=== PATIENT | male | born 1955 | race Caucasian/White ===

== ENCOUNTER 2019-04-06 03:03 | Emergency (ER) | payer BC ==
[2019-04-06] MEDS ORDERED: EPINEPHrine 1 MG/10 ML SYR IV ONE (03:04)
[2019-04-06] MEDS ORDERED: AMIODARONE HCL 150 MG/3 ML INJ IV ONE (03:04)
--- OUTSIDE RECORDS SUMMARY | 2019-04-06 03:06 | XMS REPORT | Clinical Summary ---
:1955 Author Organization [facility] Address [address] [place] [address] Care Team Providers Name Role Phone Benitez Gentile Primary Care Provider Allergies Active Allergy Reactions Severity Noted Date Comments Adhesive Other (See Comments) 03/21/2016 Redness with bandaids Adhesive Bandage 03/05/2017 Redness Medications Medication Sig Dispensed Refills Start Date End Date Status carvedilol (COREG) Take 25 mg by mouth 0 Active 25 MG tablet 2 (two) times daily with breakfast and dinner. eplerenone (INSPRA) Take 25 mg by mouth 0 Active 25 MG tablet 2 (two) times daily. mupirocin Apply topically 0 Active (BACTROBAN) 2 % daily To Right Foot ointment Wound with Daily Bandage Change and L foot.. rosuvastatin Take 20 mg by mouth 0 Active (CRESTOR) 20 MG daily. tablet insulin glargine Inject 50 Units 0 Active (TOUJEO SOLOSTAR) subcutaneously 300 unit/mL (1.5 mL) nightly . InPn syringe amiodarone 200 mg daily. 0 01/18/2017 Active (PACERONE) 200 MG tablet furosemide (LASIX) Take 2 tablets (40 20 tablet 0 02/22/2017 Active 20 MG tablet mg total) by mouth daily. nitroglycerin Place 0.4 mg under 0 Active (NITROSTAT) 0.4 MG the tongue every 5 SL tablet (five) minutes as needed for Chest pain Put 1 pill under tongue every 5min as needed for chest pain.No more than 3 doses in 15min.Call 911 if pain is unrelieved 5min after 1st dose . INSULIN LISPRO Inject 12 Units 0 Active (HUMALOG PEN SUBQ) subcutaneously 3 (three) times daily before meals . 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: CKD induced Hyperparathyroidism, secondary renal 07/26/2016 URI (upper respiratory infection) 07/26/2016 A-fib 07/23/2016 CAD (coronary artery disease) 01/10/2016 Arterial disease 01/10/2016 Diabetes mellitus 01/06/2016 S/P CABG x 4 01/06/2016 Hypertension 01/06/2016 Hyperlipidemia LDL goal <100 01/06/2016 PVD (peripheral vascular disease) 01/04/2016 Gangrene of toe 01/04/2016 Immunizations Name Dates Previously Given Next Due Influenza Three-TIV PF 5+ YRS 01/06/2016 Social History Tobacco Use Types Packs/Day Years Used Date Former Smoker Quit: 10/23/1991 Smokeless Tobacco: Never Used Alcohol Use Drinks/Week oz/Week Comments No Sex Assigned at Date Recorded Not on file Job Start Date Occupation Industry Not on file Not on file Not on file Travel History Travel Start Travel End No recent travel history available. Last Filed Vital Signs Not on file Plan of Treatment Not on file Implants Implanted Type Area Installer Interior Assemblies Device Shelf Model / Identifier Expiration Serial / Date Lot Mynxgrip Vascular Closure Device Cardiovascular ACCESS CLOSURE 2018 M4 [id number] / Implanted: Qty: 1 on 03/05/2017 by Vince Goodwin MD / [id number] Mynxgrip Vascular Closure Device Cardiovascular N/A: Groin ACCESS CLOSURE 05/10/2019 [id number] / Implanted: Qty: 1 on 07/25/2017 by Vince Goodwin MD / [id number] Promus Premier Stents-Coronary Left: [place] 02/24/2017 [id number] / Implanted: Qty: 1 on 07/24/2016 by Juan Plummer MD Coronary SCIENTIFIC / [id number] Promus Premier Stents-Coronary Right: [place] 07/14/2017 [id number] / Implanted: Qty: 1 on 07/24/2016 by Juan Plummer MD Coronary SCIENTIFIC / [id number] Tissue Matrix Grft 4x4 [id number] - [id number] Tissue Right: KINETIC 09/10/2017 [id number] / Implanted: Qty: 1 on 03/21/2016 by Moiz Brenner, DPM Graft/Substitute Foot CONCEPTS:[facility] / [place] [id number] Grft Keenan Mrtrstm 200mg [id number] - [id number] Tissue Right: [employer] 12/11 [id number] / Implanted: Qty: 1 on 03/21/2016 by Moiz Brenner, DPM Graft/Substitute Foot [id number] / [id number] Grft Hum Tiss Spnl 3x2cm Ns-1230 - [id number] Tissue Right: NUTECH MED NS-[id number] / Implanted: Qty: 1 on 03/21/2016 by Moiz Brenner, DPM Graft/Substitute Foot / Epifix Injectable 160mg Ei-5200 - Sn/A Tissue Right: [employer] 2020 [id number]-[id number] / Implanted: Qty: 1 on 03/14/2017 by Moiz Brenner, DPM Graft/Substitute Foot INC N/A / N/A Grft Keenan Mrtrstm 500 Mg Nb1146 - [id number] Tissue Left: Foot [employer] [id number] / Implanted: Qty: 1 on 07/31/2017 by Moiz Brenner, DPM Graft/Substitute [id number] / [id number] Grft Decell Dermis 4x4cm [id number] - [id number] Tissue Left: Foot LIFENET: LIFENE 04/24/2020 [id number] / Implanted: Qty: 1 on 07/31/2017 by Moiz Brenner, DPM Graft/Substitute T TRANSPLANT [id number] / SRV Epifix Injectable 160mg Ei-5200 - [id number] Tissue Left: Foot [employer] 05/11/2022 EI-5200 / Implanted: Qty: 1 on 07/31/2017 by Moiz Brenner, DPM Graft/Substitute INC / [id number] Grft Decell Dermis 4x4cm [id number] - [id number] Tissue Left: Foot LIFENET: LIFENE 01/09/2020 [id number] / Implanted: Qty: 1 on 09/12/2017 by Moiz Brenner DPM Graft/Substitute T TRANSPLANT / SRV Graft Primatrix 6x6 [id number] - [id number] Tissue Left: Foot TEI 2020 [id number] / Implanted: Qty: 1 on 12/12/2017 by Moiz Brenner DPM Graft/Substitute [employer] / [id number] Epifix Injectable 160mg Ei-5200 - [id number] Tissue Left: Foot [employer] 08/11/2022 EI-5200 / Implanted: Qty: 1 on 12/12/2017 by Moiz Brenner DPM Graft/Substitute INC / [id number] Grft Keenan Mrtrstm 200mg [id number] - [id number] Tissue Left: Foot [employer] [id number] / Implanted: Qty: 1 on 12/12/2017 by Moiz Brenner DPM Graft/Substitute [id number] / [id number] Cellerate Rx Activated Collagen Left: Foot 07/10/2020 [id number] / Implanted: Qty: 2 on 10/24/2017 by Vince Goodwin MD N/A / [id number] Results Not on fileafter 04/05/2018 Insurance Payer Benefit Plan / Subscriber ID Type Phone Address Group BLUE CROSS/BLUE BCBS HMO xxxxxxxxxxxx HMO/POS [phone] [address] [employer] [address] Advance Directives For more information, please contact:[place] [address] [place] [place], [place] [phone] Code Status Date Activated Date Inactivated Comments Full Code 03/05/2017 12:59 PM 03/05/2017 11:24 PM This code status was determined by: Patient Full Code 02/22/2017 8:17 AM 02/22/2017 3:56 PM This code status was determined by: Patient Full Code 01/14/2017 8:41 PM 01/18/2017 10:10 PM This code status was determined by: Patient Full Code 07/24/2016 10:45 AM 07/26/2016 2:16 PM This code status was determined by: Patient Full Code 07/23/2016 11:49 AM 07/23/2016 11:55 AM This code status was determined by: Patient
--- OUTSIDE RECORDS SUMMARY | 2019-04-06 03:09 | XMS REPORT ---
:1955 Author Organization [facility] Address [address] [place] [address] Care Team Providers Name Role Phone ELANA GREENFIELD Unavailable Unavailable GIANNI WIN Unavailable Unavailable HAO, MACIEL Unavailable Unavailable DANIELA MCNEIL Unavailable Unavailable Problems This patient has no known problems. Allergies, Adverse Reactions, Alerts This patient has no known allergies or adverse reactions. Medications This patient has no known medications. Results Test Description Test Time Test Comments Text Results Atomic Results Result Comments ANAEROBIC CULTURE 2017-12-20 12:59:00 Test Item Value Reference Range Comments CULTURE (BEAKER) (test yrjc=9271) No anaerobes isolated SURGICALLY OBTAINED CULTURE + GRAM [id number] 14:40:00 Test Item Value Reference Range Comments CULTURE (BEAKER) (test 2+ Diphtheroidof a second bilo=8542) type GRAM STAIN RESULT No WBCs (BEAKER) (test ndgb=8268) GRAM STAIN RESULT No organisms seen (BEAKER) (test rdyp=846308) POCT-GLUCOSE [id number] 10:19:00 Test Item Value Reference Range Comments POC-GLUCOSE METER (BEAKER) 213 mg/dL 70-[address] [facility] [address] [facility] (test aray=7758) [place] [id number] POCT-GLUCOSE [id number] 06:45:00 Test Item Value Reference Range Comments POC-GLUCOSE METER (BEAKER) 203 mg/dL 70-[address] [facility] [address] [facility] (test xlmi=9300) [place] [id number] BASIC METABOLIC [id number] 13:55:00 Test Item Value Reference Range Comments SODIUM (BEAKER) (test 133 meq/L 136-145 jynf=163) POTASSIUM (BEAKER) (test 4.0 meq/L 3.5-5.1 jveo=045) CHLORIDE (BEAKER) (test 93 meq/L 98-107 kkax=648) CO2 (BEAKER) (test 29 meq/L 22-29 htxh=534) BLOOD UREA NITROGEN 33 mg/dL 7-21 (BEAKER) (test idfq=824) CREATININE (BEAKER) (test 2.32 mg/dL 0.57-1.25 mxeu=806) GLUCOSE RANDOM (BEAKER) 378 mg/dL 70-105 (test vcxf=744) CALCIUM (BEAKER) (test 9.7 mg/dL 8.4-10.2 btap=436) EGFR (BEAKER) (test 29 mL/min/1.73 sq m ESTIMATED GFR IS NOT ayaj=6177) ACCURATE CREATININE CLEARANCE IN PREDICTING GLOMERULAR FILTRATION RATE. ESTIMATED GFR IS NOT APPLICABLE FOR DIALYSIS PATIENTS. [id number] 12:55:00 Test Item Value Reference Range Comments HEMOGLOBIN (BEAKER) (test ufld=502) 11.8 GM/DL 13.7-17.5 POCT-GLUCOSE [id number] 13:37:00 Test Item Value Reference Range Comments POC-GLUCOSE METER (BEAKER) 242 mg/dL 70-[address] [facility] [address] [place] [address] (test xdii=3119) [facility] [address] [id number] 16:00:00 Test Item Value Reference Range Comments SODIUM (BEAKER) (test hked=394) 134 meq/L 136-145 POTASSIUM (BEAKER) (test bqgt=866) 3.5 meq/L 3.5-5.1 CHLORIDE (BEAKER) (test prln=434) 97 meq/L 98-107 CO2 (BEAKER) (test ivja=295) 25 meq/L 22-29 [id number] 16:00:00 Test Item Value Reference Range Comments GLUCOSE RANDOM (BEAKER) (test bxec=855) 230 mg/dL 70-105 BUN AND [id number] 16:00:00 Test Item Value Reference Range Comments BLOOD UREA NITROGEN 19 mg/dL 7-21 (BEAKER) (test qhtn=268) CREATININE (BEAKER) (test 1.79 mg/dL 0.57-1.25 pccc=039) EGFR (BEAKER) (test 39 mL/min/1.73 sq m ESTIMATED GFR IS NOT hcdp=8593) ACCURATE CREATININE CLEARANCE IN PREDICTING GLOMERULAR FILTRATION RATE. ESTIMATED GFR IS NOT APPLICABLE FOR DIALYSIS PATIENTS. [id number] 15:23:00 Test Item Value Reference Range Comments HEMOGLOBIN (BEAKER) (test nvoe=229) 12.0 GM/DL 13.7-17.5 TISSUE [id number] 10:30:00Surgical Pathology Report Case: [id number] Authorizing Provider: Leana Greenfield DPM Collected: 09/12/2017 0959 Ordering Location: [facility] Received: 09/12/2017 1218 SERVICES Pathologist: Yonny Crews MD Specimen: Wound, REVATILIZE WOUND TISSUE ON LEFT FOOT SKIN AND SUBCUTANEOUS TISSUE, LEFT FOOT, DEBRIDEMENT OF ULCER: - ULCER, NECROSIS AND ABSCESS - NEGATIVE FOR MALIGNANCY Signing Pathologist Direct Phone Line: [phone] left footRevitalized wound tissue on left footReceived in formalin labeled "wound", description "revitalized wound tissue of left foot" is a 3.3 x 2.5 x 0.3 cm aggregate of franklin-white to yellow-green necrotic soft tissue. The specimen is entirely submitted in cassette A1. DB/plPerformed.ANAEROBIC [id number] 03:46:00 Test Item Value Reference Range Comments CULTURE (BEAKER) (test ajre=7800) No anaerobes isolated SURGICALLY OBTAINED CULTURE + GRAM [id number] 10:41:00 Test Item Value Reference Range Comments CULTURE (BEAKER) (test ytls=7714) Amikacin (test code=1) Aztreonam (test code=32) Cefepime (test code=51) Ceftazidime (test code=27) Ciprofloxacin (test code=7) Doripenem (test sjja=846) Gentamicin (test code=18) Imipenem (test code=19) Levofloxacin (test code=22) Meropenem (test code=34) Piperacillin (test code=24) Piperacillin + Tazobactam (test code=29) Tobramycin (test code=25) CULTURE (BEAKER) (test PSEUDOMONAS AERUGINOSA 3+ Pseudomonas fmuk=4553) aeruginosa Amikacin (test code=1) Aztreonam (test code=32) Cefepime (test code=51) Ceftazidime (test code=27) Ciprofloxacin (test code=7) Doripenem (test keob=721) Gentamicin (test code=18) Imipenem (test code=19) Levofloxacin (test code=22) Meropenem (test code=34) Piperacillin (test code=24) Piperacillin + Tazobactam (test code=29) Tobramycin (test code=25) CULTURE (BEAKER) (test 2+ Pseudomonas rbmw=4846) aeruginosaof a second type GRAM STAIN RESULT <1+ WBCs (BEAKER) (test wvja=6510) GRAM STAIN RESULT No organisms seen (BEAKER) (test tvkf=486834) POCT-GLUCOSE [id number] 10:10:00 Test Item Value Reference Range Comments POC-GLUCOSE METER (BEAKER) 242 mg/dL 70-110 TESTED AT [address] (test hxen=3247) [facility] [address] POCT-GLUCOSE [id number] 07:19:00 Test Item Value Reference Range Comments POC-GLUCOSE METER (BEAKER) 323 mg/dL 70-110 Notified DARIN VELÁSQUEZ/TESTED AT [facility] (test jmbw=4604) [facility] [address] BUN AND [id number] 15:16:00 Test Item Value Reference Range Comments BLOOD UREA NITROGEN 31 mg/dL 7-21 (BEAKER) (test umwk=088) CREATININE (BEAKER) (test 2.27 mg/dL 0.57-1.25 isvx=955) EGFR (BEAKER) (test 29 mL/min/1.73 sq m ESTIMATED GFR IS NOT pdkg=0776) ACCURATE CREATININE CLEARANCE IN PREDICTING GLOMERULAR FILTRATION RATE. ESTIMATED GFR IS NOT APPLICABLE FOR DIALYSIS PATIENTS. [id number] 15:15:00 Test Item Value Reference Range Comments SODIUM (BEAKER) (test hsjq=714) 139 meq/L 136-145 POTASSIUM (BEAKER) (test arry=076) 4.1 meq/L 3.5-5.1 CHLORIDE (BEAKER) (test kebn=039) 103 meq/L 98-107 CO2 (BEAKER) (test ybmn=038) 25 meq/L 22-29 [id number] 15:15:00 Test Item Value Reference Range Comments GLUCOSE RANDOM (BEAKER) (test pluf=573) 255 mg/dL 70-105 [id number] 14:50:00 Test Item Value Reference Range Comments HEMOGLOBIN (BEAKER) (test ngzb=496) 8.9 GM/DL 13.7-17.5 TISSUE [id number] 16:24:00Surgical Pathology Report Case: [id number] Authorizing Provider: Leana Greenfield DPM Collected: 07/29/2017 1915 Ordering Location: [facility] Received: 07/30/2017 0838 SERVICES Pathologist: Farhad Grissom MD Specimen: Amputation Site, Amputation of 4th toe , left foot BONE, LEFT FOOT FOURTH TOE, AMPUTATION: - GANGRENOUS NECROSIS INVOLVING THE SKIN AND SOFT TISSUE MARGIN - CHRONIC OSTEOMYELITIS INVOLVING THE BONE MARGIN Signing Pathologist Direct Phone Line: [phone] signed by Farhad Grissom MD on 08/06/2017 at 4:24 [id number] foot infection, gangrene 4th toe left foot amputationThe specimen is received in a fluidless container labeled with the patient's information and labeled "amputation of 4th toe left foot" and consists of an amputated toe measuring 7 x 1.5 x 1.5 cm. The majority of the skin is involved with gangrene and has a light-purple discoloration. The area measures 4 x 1.5 cm leaving approximately 0.8 cm of grossly viable skin. No other abnormalities are seen.Section code: A1, skin margin en face; A2, bone margin en face submitted for decalcification; A3, cross section through toe consisting of bone and area of gangrene submitted for decalcification. CG/ewThe skin margin shows gangrenous necrosis in the deep dermis and thebone margin shows chronic osteomyelitis .ANAEROBIC [id number] 16:56:00 Test Item Value Reference Range Comments CULTURE (BEAKER) (test zguj=3606) No anaerobes isolated SURGICALLY OBTAINED CULTURE + GRAM [id number] 08:00:00 Test Item Value Reference Range Comments CULTURE (BEAKER) <1+ Nellie parapsilosis (test vzpf=0619) GRAM STAIN RESULT No White blood cells (BEAKER) (test seen chgr=6159) GRAM STAIN RESULT No organisms seen (BEAKER) (test wygr=536116) POCT-GLUCOSE [id number] 13:11:00 Test Item Value Reference Range Comments POC-GLUCOSE METER (BEAKER) 204 mg/dL 70-[address] [facility] [address] [facility] (test kvgy=5551) [facility] [address] POCT-GLUCOSE [id number] 07:48:00 Test Item Value Reference Range Comments POC-GLUCOSE METER (BEAKER) 124 mg/dL 70-110 TESTED AT [place] [id number] [facility] (test ugza=2368) [facility] [address] CBC W/PLT COUNT & AUTO [id number] 04:33:00 Test Item Value Reference Range Comments WHITE BLOOD CELL COUNT (BEAKER) (test yyzz=064) 8.2 K/ L 3.5-10.5 RED BLOOD CELL COUNT (BEAKER) (test hqmr=337) 3.66 M/ L 4.63-6.08 HEMOGLOBIN (BEAKER) (test ljvp=423) 8.6 GM/DL 13.7-17.5 HEMATOCRIT (BEAKER) (test cebu=200) 28.7 % 40.1-51.0 MEAN CORPUSCULAR VOLUME (BEAKER) (test wpkk=801) 78.4 fL 79.0-92.2 MEAN CORPUSCULAR HEMOGLOBIN (BEAKER) (test 23.5 pg 25.7-32.2 pfvf=268) MEAN CORPUSCULAR HEMOGLOBIN CONC (BEAKER) (test 30.0 GM/DL 32.3-36.5 srdh=517) RED CELL DISTRIBUTION WIDTH (BEAKER) (test 17.1 % 11.6-14.4 fxue=502) PLATELET COUNT (BEAKER) (test pkrg=999) 323 K/CU MM 150-450 MEAN PLATELET VOLUME (BEAKER) (test tsbj=782) 8.3 fL 9.4-12.4 NUCLEATED RED BLOOD CELLS (BEAKER) (test 0 /100 WBC 0-0 qgvo=601) NEUTROPHILS RELATIVE PERCENT (BEAKER) (test 74 % tdsc=224) LYMPHOCYTES RELATIVE PERCENT (BEAKER) (test 12 % rygx=482) MONOCYTES RELATIVE PERCENT (BEAKER) (test 8 % msdf=479) EOSINOPHILS RELATIVE PERCENT (BEAKER) (test 4 % gcla=901) BASOPHILS RELATIVE PERCENT (BEAKER) (test 1 % nivw=669) NEUTROPHILS ABSOLUTE COUNT (BEAKER) (test 6.11 K/ L 1.78-5.38 fpgh=618) LYMPHOCYTES ABSOLUTE COUNT (BEAKER) (test 0.97 K/ L 1.32-3.57 nbwk=139) MONOCYTES ABSOLUTE COUNT (BEAKER) (test 0.66 K/ L 0.30-0.82 vjlz=100) EOSINOPHILS ABSOLUTE COUNT (BEAKER) (test 0.34 K/ L 0.04-0.54 foqg=628) BASOPHILS ABSOLUTE COUNT (BEAKER) (test 0.07 K/ L 0.01-0.08 zwmo=807) IMMATURE GRANULOCYTES-RELATIVE PERCENT (BEAKER) 1 % 0-1 (test zpqp=8677) ANAEROBIC [id number] 01:01:00 Test Item Value Reference Range Comments CULTURE (BEAKER) (test luvq=2957) No anaerobes isolated POCT-GLUCOSE [id number] 21:57:00 Test Item Value Reference Range Comments POC-GLUCOSE METER (BEAKER) 299 mg/dL 70-110 TESTED AT [address] (test ojxi=4493) [place] [address] RAD, CHEST, 1 VIEW, NON [id number] 21:12:00Reason for exam:->check picc placement Should this be performed at the bedside?->YesFINAL REPORT RAD, CHEST, 1 VIEW, NON DEPT INDICATION: check picc placement COMPARISON: Chest x-rays dating back to 01/14/2017 TECHNIQUE: Single frontal view of the chest. IMPRESSION:Right-sided PICC line terminates near the atriocaval junction.Cardiomediastinal silhouette within normal limits.No overt consolidative or congestive change.No acute osseous abnormality. Signed: Gopal Pillai MDReport Verified Date/Time: 08/01/2017 21:12:56 Reading Location: [facility] [id number] Ortho Consult Reading Room POCT-GLUCOSE [id number] 16:56:00 Test Item Value Reference Range Comments POC-GLUCOSE METER (BEAKER) 192 mg/dL 70-110 TESTED AT [address] (test tbrv=3268) [facility] [address] POCT-GLUCOSE [id number] 12:56:00 Test Item Value Reference Range Comments POC-GLUCOSE METER (BEAKER) 73 mg/dL 70-[address] [facility] [address] (test fnxn=5797) [facility] [address] COMPREHENSIVE METABOLIC [id number] 12:40:00 Test Item Value Reference Range Comments TOTAL PROTEIN (BEAKER) 7.1 gm/dL 6.0-8.3 (test nvuu=644) ALBUMIN (BEAKER) (test 3.4 g/dL 3.5-5.0 bbdm=4379) ALKALINE PHOSPHATASE 111 U/L 40-150 (BEAKER) (test yeav=784) BILIRUBIN TOTAL (BEAKER) 0.7 mg/dL 0.2-1.2 (test xiqo=709) SODIUM (BEAKER) (test 142 meq/L 136-145 gtnf=683) POTASSIUM (BEAKER) (test 3.8 meq/L 3.5-5.1 qbew=278) CHLORIDE (BEAKER) (test 104 meq/L 98-107 zwdn=478) CO2 (BEAKER) (test 31 meq/L 22-29 wqqv=518) BLOOD UREA NITROGEN 19 mg/dL 7-21 (BEAKER) (test bsdl=162) CREATININE (BEAKER) (test 2.12 mg/dL 0.57-1.25 lixs=808) GLUCOSE RANDOM (BEAKER) 77 mg/dL 70-105 (test osmr=624) CALCIUM (BEAKER) (test 9.3 mg/dL 8.4-10.2 izjh=492) AST (SGOT) (BEAKER) (test 14 U/L 5-34 xted=198) ALT (SGPT) (BEAKER) (test 12 U/L 6-55 azfu=445) EGFR (BEAKER) (test 32 mL/min/1.73 sq m ESTIMATED GFR IS NOT agef=6416) ACCURATE CREATININE CLEARANCE IN PREDICTING GLOMERULAR FILTRATION RATE. ESTIMATED GFR IS NOT APPLICABLE FOR DIALYSIS PATIENTS. [id number] 12:33:00 Test Item Value Reference Range Comments MAGNESIUM (BEAKER) (test mams=491) 2.1 mg/dL 1.6-2.6 TISSUE [id number] 10:05:00Surgical Pathology Report Case: [id number] Authorizing Provider: Leana Greenfield DPM Collected: 07/24/2017 1535 Ordering Location: [facility] Received: 07/25/2017 0832 SERVICES Pathologist: Farhad Grissom MD Specimen: Toe, Right, 5th BONE AND SOFT TISSUE, RIGHT FIFTH TOE, RAY AMPUTATION: - NONVIABLE SKIN RESECTION MARGIN - NONVIABLE BONE RESECTION MARGIN - ULCERATION WITH GANGRENOUS NECROSIS AND ACUTE OSTEOMYELITIS Signing Pathologist Direct Phone Line: [phone] at 10:05 [id number] wet gangrene of foot Right 5th toeThe specimen is received in a formalin-filled container and labeled with the patient's information and labeled "right 5th toe" and consists of an amputated toe measuring 4.5 x 1.5 x 1 cm. Grossly, the entire skin is involved with gangrene. There is no distinctly viable skin present. The area of gangrene measures approximately 3.8 cm in greatest dimension. Section code: A1, skin margin en face; A2, cross section of bone margin en face, submitted for decalcification; A3, cross section of gangrene and underlying bone, submitted for decalcification. CG/pl The soft tissue sections demonstrate marked acute and chronic inflammation with necrosis and overlying ulceration of the epidermis. The bone shows marrow necrosis with fibrovascular replacement, acute and chronic inflammation, and bony remodeling.SURGICALLY OBTAINED CULTURE + GRAM [id number] 09:05:00 Test Item Value Reference Range Comments CULTURE (BEAKER) (test ttoq=5134) No growth GRAM STAIN RESULT (BEAKER) (test <1+ WBCs zcam=5272) GRAM STAIN RESULT (BEAKER) (test No organisms seen mtpv=38292) POCT-GLUCOSE [id number] 08:15:00 Test Item Value Reference Range Comments POC-GLUCOSE METER (BEAKER) 185 mg/dL 70-[address] [facility] [address] [facility] (test riac=8173) [facility] [address] POCT-GLUCOSE [id number] 21:13:00 Test Item Value Reference Range Comments POC-GLUCOSE METER (BEAKER) 221 mg/dL 70-[address] [facility] [address] [facility] (test bmtl=6686) [facility] [address] POCT-GLUCOSE [id number] 19:31:00 Test Item Value Reference Range Comments POC-GLUCOSE METER (BEAKER) 130 mg/dL 70-110 TESTED AT [address] (test hqyq=0234) [facility] [address] POCT-GLUCOSE [id number] 17:49:00 Test Item Value Reference Range Comments POC-GLUCOSE METER (BEAKER) 135 mg/dL 70-110 TESTED AT [address] (test dhjw=9137) [facility] [address] POCT-GLUCOSE [id number] 12:09:00 Test Item Value Reference Range Comments POC-GLUCOSE METER (BEAKER) 110 mg/dL 70-110 TESTED AT [address] (test xwit=6556) [facility] [address] POCT-GLUCOSE [id number] 07:50:00 Test Item Value Reference Range Comments POC-GLUCOSE METER (BEAKER) 112 mg/dL 70-110 TESTED AT [address] (test olxx=0250) [facility] [address] [id number] 06:13:00 Test Item Value Reference Range Comments MAGNESIUM (BEAKER) (test vjtd=484) 2.0 mg/dL 1.6-2.6 BASIC METABOLIC [id number] 06:13:00 Test Item Value Reference Range Comments SODIUM (BEAKER) (test 140 meq/L 136-145 xfvg=421) POTASSIUM (BEAKER) (test 3.5 meq/L 3.5-5.1 qhhl=596) CHLORIDE (BEAKER) (test 102 meq/L 98-107 iaaq=143) CO2 (BEAKER) (test 28 meq/L 22-29 gpcu=425) BLOOD UREA NITROGEN 19 mg/dL 7-21 (BEAKER) (test owbv=090) CREATININE (BEAKER) (test 2.07 mg/dL 0.57-1.25 bzct=212) GLUCOSE RANDOM (BEAKER) 117 mg/dL 70-105 (test kdsd=835) CALCIUM (BEAKER) (test 9.0 mg/dL 8.4-10.2 onzx=812) EGFR (BEAKER) (test 33 mL/min/1.73 sq m ESTIMATED GFR IS NOT dmgi=8199) ACCURATE CREATININE CLEARANCE IN PREDICTING GLOMERULAR FILTRATION RATE. ESTIMATED GFR IS NOT APPLICABLE FOR DIALYSIS PATIENTS. CBC W/PLT COUNT & AUTO [id number] 06:12:00 Test Item Value Reference Range Comments WHITE BLOOD CELL COUNT (BEAKER) (test obbi=376) 7.2 K/ L 3.5-10.5 RED BLOOD CELL COUNT (BEAKER) (test iajz=158) 3.84 M/ L 4.63-6.08 HEMOGLOBIN (BEAKER) (test uhph=746) 8.9 GM/DL 13.7-17.5 HEMATOCRIT (BEAKER) (test mkuo=068) 29.7 % 40.1-51.0 MEAN CORPUSCULAR VOLUME (BEAKER) (test bzxv=760) 77.3 fL 79.0-92.2 MEAN CORPUSCULAR HEMOGLOBIN (BEAKER) (test 23.2 pg 25.7-32.2 fyef=819) MEAN CORPUSCULAR HEMOGLOBIN CONC (BEAKER) (test 30.0 GM/DL 32.3-36.5 yaax=134) RED CELL DISTRIBUTION WIDTH (BEAKER) (test 17.0 % 11.6-14.4 gzkw=822) PLATELET COUNT (BEAKER) (test goun=886) 383 K/CU MM 150-450 MEAN PLATELET VOLUME (BEAKER) (test aysi=315) 8.4 fL 9.4-12.4 NUCLEATED RED BLOOD CELLS (BEAKER) (test 0 /100 WBC 0-0 bqui=922) NEUTROPHILS RELATIVE PERCENT (BEAKER) (test 71 % jhya=370) LYMPHOCYTES RELATIVE PERCENT (BEAKER) (test 16 % xkgc=202) MONOCYTES RELATIVE PERCENT (BEAKER) (test 8 % celd=597) EOSINOPHILS RELATIVE PERCENT (BEAKER) (test 4 % boou=373) BASOPHILS RELATIVE PERCENT (BEAKER) (test 1 % pird=215) NEUTROPHILS ABSOLUTE COUNT (BEAKER) (test 5.10 K/ L 1.78-5.38 nvhi=568) LYMPHOCYTES ABSOLUTE COUNT (BEAKER) (test 1.15 K/ L 1.32-3.57 hudx=159) MONOCYTES ABSOLUTE COUNT (BEAKER) (test 0.61 K/ L 0.30-0.82 tclp=754) EOSINOPHILS ABSOLUTE COUNT (BEAKER) (test 0.26 K/ L 0.04-0.54 npzw=638) BASOPHILS ABSOLUTE COUNT (BEAKER) (test 0.06 K/ L 0.01-0.08 hixr=894) IMMATURE GRANULOCYTES-RELATIVE PERCENT (BEAKER) 1 % 0-1 (test tnbj=0530) POCT-GLUCOSE [id number] 21:06:00 Test Item Value Reference Range Comments POC-GLUCOSE METER (BEAKER) 154 mg/dL 70-110 TESTED AT [address] (test vryj=4053) [place] [id number] POCT-GLUCOSE [id number] 17:57:00 Test Item Value Reference Range Comments POC-GLUCOSE METER (BEAKER) 142 mg/dL 70-110 TESTED AT [address] (test keyi=1436) [facility] [address] POCT-GLUCOSE [id number] 12:57:00 Test Item Value Reference Range Comments POC-GLUCOSE METER (BEAKER) 199 mg/dL 70-110 TESTED AT [address] (test nora=1362) [place] [address] POCT-GLUCOSE [id number] 07:41:00 Test Item Value Reference Range Comments POC-GLUCOSE METER (BEAKER) 217 mg/dL 70-110 TESTED AT [address] (test ofea=5634) [facility] [address] BASIC METABOLIC [id number] 05:01:00 Test Item Value Reference Range Comments SODIUM (BEAKER) (test 140 meq/L 136-145 kxsu=979) POTASSIUM (BEAKER) (test 3.3 meq/L 3.5-5.1 dkbu=602) CHLORIDE (BEAKER) (test 101 meq/L 98-107 eytf=688) CO2 (BEAKER) (test 31 meq/L 22-29 ojle=569) BLOOD UREA NITROGEN 16 mg/dL 7-21 (BEAKER) (test vpyj=489) CREATININE (BEAKER) (test 1.96 mg/dL 0.57-1.25 zyaj=847) GLUCOSE RANDOM (BEAKER) 203 mg/dL 70-105 (test ohrx=355) CALCIUM (BEAKER) (test 9.1 mg/dL 8.4-10.2 eosm=896) EGFR (BEAKER) (test 35 mL/min/1.73 sq m ESTIMATED GFR IS NOT isib=9895) ACCURATE CREATININE CLEARANCE IN PREDICTING GLOMERULAR FILTRATION RATE. ESTIMATED GFR IS NOT APPLICABLE FOR DIALYSIS PATIENTS. CBC W/PLT COUNT & AUTO [id number] 04:55:00 Test Item Value Reference Range Comments WHITE BLOOD CELL COUNT (BEAKER) (test vlco=011) 6.7 K/ L 3.5-10.5 RED BLOOD CELL COUNT (BEAKER) (test lcjq=668) 3.95 M/ L 4.63-6.08 HEMOGLOBIN (BEAKER) (test owrf=723) 9.2 GM/DL 13.7-17.5 HEMATOCRIT (BEAKER) (test siac=290) 30.7 % 40.1-51.0 MEAN CORPUSCULAR VOLUME (BEAKER) (test gurt=605) 77.7 fL 79.0-92.2 MEAN CORPUSCULAR HEMOGLOBIN (BEAKER) (test 23.3 pg 25.7-32.2 gwkh=380) MEAN CORPUSCULAR HEMOGLOBIN CONC (BEAKER) (test 30.0 GM/DL 32.3-36.5 ifeb=147) RED CELL DISTRIBUTION WIDTH (BEAKER) (test 16.6 % 11.6-14.4 lcmb=870) PLATELET COUNT (BEAKER) (test ybuz=724) 348 K/CU MM 150-450 MEAN PLATELET VOLUME (BEAKER) (test elol=442) 8.4 fL 9.4-12.4 NUCLEATED RED BLOOD CELLS (BEAKER) (test 0 /100 WBC 0-0 vjxz=720) NEUTROPHILS RELATIVE PERCENT (BEAKER) (test 71 % qbdg=856) LYMPHOCYTES RELATIVE PERCENT (BEAKER) (test 16 % sfbb=438) MONOCYTES RELATIVE PERCENT (BEAKER) (test 8 % hycb=070) EOSINOPHILS RELATIVE PERCENT (BEAKER) (test 4 % kzts=664) BASOPHILS RELATIVE PERCENT (BEAKER) (test 1 % gagi=962) NEUTROPHILS ABSOLUTE COUNT (BEAKER) (test 4.77 K/ L 1.78-5.38 fjao=773) LYMPHOCYTES ABSOLUTE COUNT (BEAKER) (test 1.04 K/ L 1.32-3.57 hvay=476) MONOCYTES ABSOLUTE COUNT (BEAKER) (test 0.51 K/ L 0.30-0.82 joiw=238) EOSINOPHILS ABSOLUTE COUNT (BEAKER) (test 0.26 K/ L 0.04-0.54 poip=055) BASOPHILS ABSOLUTE COUNT (BEAKER) (test 0.07 K/ L 0.01-0.08 rpcl=606) IMMATURE GRANULOCYTES-RELATIVE PERCENT (BEAKER) 1 % 0-1 (test uafb=2796) POCT-GLUCOSE [id number] 22:34:00 Test Item Value Reference Range Comments POC-GLUCOSE METER (BEAKER) 131 mg/dL 70-110 TESTED AT [address] (test hlcn=4977) [place] [address] POCT-GLUCOSE [id number] 21:37:00 Test Item Value Reference Range Comments POC-GLUCOSE METER (BEAKER) 131 mg/dL 70-110 TESTED AT [address] (test ifcy=5947) [place] [address] POCT-GLUCOSE [id number] 16:19:00 Test Item Value Reference Range Comments POC-GLUCOSE METER (BEAKER) 141 mg/dL 70-110 TESTED AT [address] (test ijqk=2640) [place] [address] POCT-GLUCOSE [id number] 12:34:00 Test Item Value Reference Range Comments POC-GLUCOSE METER (BEAKER) 298 mg/dL 70-110 TESTED AT [address] (test lmqq=8249) [place] [address] POCT-GLUCOSE [id number] 11:24:00 Test Item Value Reference Range Comments POC-GLUCOSE METER (BEAKER) 245 mg/dL 70-110 TESTED AT [address] (test ahgu=9325) [place] [address] SURGICALLY OBTAINED CULTURE + GRAM [id number] 07:51:00 Test Item Value Reference Range Comments CULTURE (BEAKER) (test 4+ Actinomyces species mkro=6323) GRAM STAIN RESULT <1+ WBCs (BEAKER) (test mrge=8262) GRAM STAIN RESULT 1+ gram positive cocci (BEAKER) (test in pairs demo=[id number]) SURGICALLY OBTAINED CULTURE + GRAM [id number] 07:50:00 Test Item Value Reference Range Comments CULTURE (BEAKER) ENTEROCOCCUS SPECIES 4+ Enterococcus species (test gocu=2570) Ampicillin (test code=26) Linezolid (test code=40) Vancomycin (test code=13) CULTURE (BEAKER) 1+ Diphtheroid (test xqlc=2629) CULTURE (BEAKER) 4+ Same organism has been (test rjsi=7932) isolated from culture(s) of the same body site and collection date. Repeat identification performed only after consultation with the clinical microbiology laboratory.Refer to previous culture ofActinomyces species GRAM STAIN RESULT <1+ WBCs (BEAKER) (test yaeq=4316) GRAM STAIN RESULT 2+ gram positive cocci (BEAKER) (test in pairs and clusters [id number]=[id number]) POCT-GLUCOSE [id number] 06:51:00 Test Item Value Reference Range Comments POC-GLUCOSE METER (BEAKER) 251 mg/dL 70-[address] [facility] [address] (test tyqr=5730) [facility] [address] BASIC METABOLIC [id number] 06:08:00 Test Item Value Reference Range Comments SODIUM (BEAKER) (test 141 meq/L 136-145 ahdr=401) POTASSIUM (BEAKER) (test 3.0 meq/L 3.5-5.1 gkjr=871) CHLORIDE (BEAKER) (test 100 meq/L 98-107 kykh=227) CO2 (BEAKER) (test 31 meq/L 22-29 kclz=224) BLOOD UREA NITROGEN 15 mg/dL 7-21 (BEAKER) (test akjv=496) CREATININE (BEAKER) (test 2.03 mg/dL 0.57-1.25 qoqk=603) GLUCOSE RANDOM (BEAKER) 178 mg/dL 70-105 (test wzbk=419) CALCIUM (BEAKER) (test 8.9 mg/dL 8.4-10.2 iuow=492) EGFR (BEAKER) (test 34 mL/min/1.73 sq m ESTIMATED GFR IS NOT glru=2899) ACCURATE CREATININE CLEARANCE IN PREDICTING GLOMERULAR FILTRATION RATE. ESTIMATED GFR IS NOT APPLICABLE FOR DIALYSIS PATIENTS. CBC W/PLT COUNT & AUTO [id number] 05:53:00 Test Item Value Reference Range Comments WHITE BLOOD CELL COUNT (BEAKER) (test izbm=272) 7.7 K/ L 3.5-10.5 RED BLOOD CELL COUNT (BEAKER) (test skne=660) 4.09 M/ L 4.63-6.08 HEMOGLOBIN (BEAKER) (test wswc=596) 9.5 GM/DL 13.7-17.5 HEMATOCRIT (BEAKER) (test skif=950) 31.8 % 40.1-51.0 MEAN CORPUSCULAR VOLUME (BEAKER) (test pbsm=178) 77.8 fL 79.0-92.2 MEAN CORPUSCULAR HEMOGLOBIN (BEAKER) (test 23.2 pg 25.7-32.2 ncle=687) MEAN CORPUSCULAR HEMOGLOBIN CONC (BEAKER) (test 29.9 GM/DL 32.3-36.5 vhdp=480) RED CELL DISTRIBUTION WIDTH (BEAKER) (test 16.5 % 11.6-14.4 yvnf=987) PLATELET COUNT (BEAKER) (test iquy=546) 380 K/CU MM 150-450 MEAN PLATELET VOLUME (BEAKER) (test ewwf=324) 8.6 fL 9.4-12.4 NUCLEATED RED BLOOD CELLS (BEAKER) (test 0 /100 WBC 0-0 itmw=932) NEUTROPHILS RELATIVE PERCENT (BEAKER) (test 74 % nzvb=038) LYMPHOCYTES RELATIVE PERCENT (BEAKER) (test 13 % klsl=893) MONOCYTES RELATIVE PERCENT (BEAKER) (test 9 % hjfo=450) EOSINOPHILS RELATIVE PERCENT (BEAKER) (test 3 % xiuk=628) BASOPHILS RELATIVE PERCENT (BEAKER) (test 1 % hbyw=396) NEUTROPHILS ABSOLUTE COUNT (BEAKER) (test 5.67 K/ L 1.78-5.38 ihif=570) LYMPHOCYTES ABSOLUTE COUNT (BEAKER) (test 0.97 K/ L 1.32-3.57 hmuy=858) MONOCYTES ABSOLUTE COUNT (BEAKER) (test 0.67 K/ L 0.30-0.82 vjaa=966) EOSINOPHILS ABSOLUTE COUNT (BEAKER) (test 0.25 K/ L 0.04-0.54 tdyp=629) BASOPHILS ABSOLUTE COUNT (BEAKER) (test 0.04 K/ L 0.01-0.08 gruk=231) IMMATURE GRANULOCYTES-RELATIVE PERCENT (BEAKER) 1 % 0-1 (test rbsh=1688) POCT-GLUCOSE [id number] 18:24:00 Test Item Value Reference Range Comments POC-GLUCOSE METER (BEAKER) 238 mg/dL 70-[address] [facility] [address] (test pwnb=7867) [facility] [address] BASIC METABOLIC [id number] 15:58:00 Test Item Value Reference Range Comments SODIUM (BEAKER) (test 140 meq/L 136-145 sdtx=304) POTASSIUM (BEAKER) (test 3.1 meq/L 3.5-5.1 ksrz=764) CHLORIDE (BEAKER) (test 99 meq/L 98-107 pbht=327) CO2 (BEAKER) (test 32 meq/L 22-29 eypy=791) BLOOD UREA NITROGEN 14 mg/dL 7-21 (BEAKER) (test acrh=354) CREATININE (BEAKER) (test 2.13 mg/dL 0.57-1.25 juxb=048) GLUCOSE RANDOM (BEAKER) 156 mg/dL 70-105 (test jbmm=066) CALCIUM (BEAKER) (test 9.1 mg/dL 8.4-10.2 jtwu=843) EGFR (BEAKER) (test 32 mL/min/1.73 sq m ESTIMATED GFR IS NOT isll=5222) ACCURATE CREATININE CLEARANCE IN PREDICTING GLOMERULAR FILTRATION RATE. ESTIMATED GFR IS NOT APPLICABLE FOR DIALYSIS PATIENTS. CBC W/PLT COUNT & AUTO [id number] 15:55:00 Test Item Value Reference Range Comments WHITE BLOOD CELL COUNT (BEAKER) (test cpyu=753) 8.7 K/ L 3.5-10.5 RED BLOOD CELL COUNT (BEAKER) (test rcub=843) 4.03 M/ L 4.63-6.08 HEMOGLOBIN (BEAKER) (test vzhe=644) 9.5 GM/DL 13.7-17.5 HEMATOCRIT (BEAKER) (test zgfm=908) 31.1 % 40.1-51.0 MEAN CORPUSCULAR VOLUME (BEAKER) (test vcxj=416) 77.2 fL 79.0-92.2 MEAN CORPUSCULAR HEMOGLOBIN (BEAKER) (test 23.6 pg 25.7-32.2 zxqb=361) MEAN CORPUSCULAR HEMOGLOBIN CONC (BEAKER) (test 30.5 GM/DL 32.3-36.5 deim=292) RED CELL DISTRIBUTION WIDTH (BEAKER) (test 16.4 % 11.6-14.4 onlf=644) PLATELET COUNT (BEAKER) (test mlll=656) 372 K/CU MM 150-450 MEAN PLATELET VOLUME (BEAKER) (test vcme=586) 8.4 fL 9.4-12.4 NUCLEATED RED BLOOD CELLS (BEAKER) (test 0 /100 WBC 0-0 bzog=419) NEUTROPHILS RELATIVE PERCENT (BEAKER) (test 79 % snza=925) LYMPHOCYTES RELATIVE PERCENT (BEAKER) (test 9 % lxdg=750) MONOCYTES RELATIVE PERCENT (BEAKER) (test 8 % lcdu=196) EOSINOPHILS RELATIVE PERCENT (BEAKER) (test 3 % mrgj=028) BASOPHILS RELATIVE PERCENT (BEAKER) (test 1 % bahr=377) NEUTROPHILS ABSOLUTE COUNT (BEAKER) (test 6.81 K/ L 1.78-5.38 grvc=291) LYMPHOCYTES ABSOLUTE COUNT (BEAKER) (test 0.79 K/ L 1.32-3.57 bxyi=860) MONOCYTES ABSOLUTE COUNT (BEAKER) (test 0.72 K/ L 0.30-0.82 unnq=766) EOSINOPHILS ABSOLUTE COUNT (BEAKER) (test 0.25 K/ L 0.04-0.54 udlt=754) BASOPHILS ABSOLUTE COUNT (BEAKER) (test 0.06 K/ L 0.01-0.08 vcpl=416) IMMATURE GRANULOCYTES-RELATIVE PERCENT (BEAKER) 1 % 0-1 (test ophm=6551) POCT-GLUCOSE [id number] 12:19:00 Test Item Value Reference Range Comments POC-GLUCOSE METER (BEAKER) 95 mg/dL 70-110 TESTED AT [address] (test fusd=8127) [place] [id number] POCT-GLUCOSE [id number] 08:48:00 Test Item Value Reference Range Comments POC-GLUCOSE METER (BEAKER) 105 mg/dL 70-110 TESTED AT [address] (test ktrl=2067) [place] [address] BLOOD [id number] 01:00:00 Test Item Value Reference Range Comments CULTURE (BEAKER) (test qruz=9699) No growth in 5 days BLOOD [id number] 01:00:00 Test Item Value Reference Range Comments CULTURE (BEAKER) (test rdkt=5720) No growth in 5 days POCT-GLUCOSE [id number] 21:41:00 Test Item Value Reference Range Comments POC-GLUCOSE METER (BEAKER) 187 mg/dL 70-110 TESTED AT [address] (test ywli=5553) [facility] [address] POCT-GLUCOSE [id number] 17:07:00 Test Item Value Reference Range Comments POC-GLUCOSE METER (BEAKER) 190 mg/dL 70-110 TESTED AT [address] (test pjzr=4779) [place] [address] ANAEROBIC [id number] 13:51:00 Test Item Value Reference Range Comments CULTURE (BEAKER) (test nfdw=1258) No anaerobes isolated ANAEROBIC [id number] 13:50:00 Test Item Value Reference Range Comments CULTURE (BEAKER) (test fhip=7434) No anaerobes isolated POCT-GLUCOSE [id number] 12:08:00 Test Item Value Reference Range Comments POC-GLUCOSE METER (BEAKER) 215 mg/dL 70-110 TESTED AT [address] (test uawi=7585) [place] [address] POCT-GLUCOSE [id number] 08:05:00 Test Item Value Reference Range Comments POC-GLUCOSE METER (BEAKER) 109 mg/dL 70-110 TESTED AT [address] (test ttwl=5124) [place] [address] BUN AND [id number] 04:44:00 Test Item Value Reference Range Comments BLOOD UREA NITROGEN 16 mg/dL 7-21 (BEAKER) (test ozge=320) CREATININE (BEAKER) (test 2.00 mg/dL 0.57-1.25 mrja=560) EGFR (BEAKER) (test 34 mL/min/1.73 sq m ESTIMATED GFR IS NOT awyi=7433) ACCURATE CREATININE CLEARANCE IN PREDICTING GLOMERULAR FILTRATION RATE. ESTIMATED GFR IS NOT APPLICABLE FOR DIALYSIS PATIENTS. POCT-GLUCOSE [id number] 21:34:00 Test Item Value Reference Range Comments POC-GLUCOSE METER (BEAKER) 115 mg/dL 70-110 TESTED AT [address] (test xscx=2659) [place] [id number] POCT-GLUCOSE [id number] 17:32:00 Test Item Value Reference Range Comments POC-GLUCOSE METER (BEAKER) 175 mg/dL 70-110 TESTED AT [address] (test bwhe=3468) [place] [address] POCT-GLUCOSE [id number] 11:49:00 Test Item Value Reference Range Comments POC-GLUCOSE METER (BEAKER) 188 mg/dL 70-110 TESTED AT [address] (test pywu=1040) [place] [address] POCT-GLUCOSE [id number] 22:21:00 Test Item Value Reference Range Comments POC-GLUCOSE METER (BEAKER) 117 mg/dL 70-[address] [facility] [address] (test lbfe=0854) [facility] [address] POCT-GLUCOSE [id number] 16:59:00 Test Item Value Reference Range Comments POC-GLUCOSE METER (BEAKER) 138 mg/dL 70-110 TESTED AT [address] (test ozga=4679) [facility] [address] POCT-GLUCOSE [id number] 09:11:00 Test Item Value Reference Range Comments POC-GLUCOSE METER (BEAKER) 166 mg/dL 70-110 TESTED AT [address] (test itqx=0293) [facility] [address] HEPATIC FUNCTION [id number] 04:18:00 Test Item Value Reference Range Comments TOTAL PROTEIN (BEAKER) (test yoja=865) 7.2 gm/dL 6.0-8.3 ALBUMIN (BEAKER) (test xhwy=2539) 3.3 g/dL 3.5-5.0 BILIRUBIN TOTAL (BEAKER) (test vbik=805) 0.9 mg/dL 0.2-1.2 BILIRUBIN DIRECT (BEAKER) (test wqsf=305) 0.5 mg/dL 0.1-0.5 ALKALINE PHOSPHATASE (BEAKER) (test xpdi=663) 162 U/L 40-150 AST (SGOT) (BEAKER) (test nfxy=380) 13 U/L 5-34 ALT (SGPT) (BEAKER) (test imqr=473) 13 U/L 6-55 BASIC METABOLIC [id number] 04:18:00 Test Item Value Reference Range Comments SODIUM (BEAKER) (test 137 meq/L 136-145 edmf=999) POTASSIUM (BEAKER) (test 3.3 meq/L 3.5-5.1 usop=446) CHLORIDE (BEAKER) (test 99 meq/L 98-107 shgb=893) CO2 (BEAKER) (test 27 meq/L 22-29 cwhl=927) BLOOD UREA NITROGEN 19 mg/dL 7-21 (BEAKER) (test krld=390) CREATININE (BEAKER) (test 1.95 mg/dL 0.57-1.25 kjpw=712) GLUCOSE RANDOM (BEAKER) 261 mg/dL 70-105 (test tfjg=483) CALCIUM (BEAKER) (test 9.4 mg/dL 8.4-10.2 zkxc=032) EGFR (BEAKER) (test 35 mL/min/1.73 sq m ESTIMATED GFR IS NOT lhjk=0383) ACCURATE CREATININE CLEARANCE IN PREDICTING GLOMERULAR FILTRATION RATE. ESTIMATED GFR IS NOT APPLICABLE FOR DIALYSIS PATIENTS. PROTHROMBIN [id number] 04:11:00 Test Item Value Reference Range Comments PROTIME (BEAKER) (test awtm=894) 16.9 seconds 11.7-14.7 INR (BEAKER) (test jfgc=875) 1.4 <=5.9 RECOMMENDED COUMADIN/WARFARIN INR THERAPY RANGESSTANDARD DOSE: 2.0 - 3.0 Includes: PROPHYLAXIS forvenous thrombosis, systemic embolization; TREATMENT for venous thrombosis and/or pulmonary embolus.HIGH RISK: Target INR is 2.5-3.5 for patients with mechanical heart valves.CBC W/PLT COUNT & AUTO [id number] 04:04:00 Test Item Value Reference Range Comments WHITE BLOOD CELL COUNT (BEAKER) (test lfyc=780) 10.0 K/ L 3.5-10.5 RED BLOOD CELL COUNT (BEAKER) (test ejow=374) 3.90 M/ L 4.63-6.08 HEMOGLOBIN (BEAKER) (test ysda=448) 9.3 GM/DL 13.7-17.5 HEMATOCRIT (BEAKER) (test uynu=284) 29.9 % 40.1-51.0 MEAN CORPUSCULAR VOLUME (BEAKER) (test dtug=830) 76.7 fL 79.0-92.2 MEAN CORPUSCULAR HEMOGLOBIN (BEAKER) (test 23.8 pg 25.7-32.2 rzfr=251) MEAN CORPUSCULAR HEMOGLOBIN CONC (BEAKER) (test 31.1 GM/DL 32.3-36.5 lvus=827) RED CELL DISTRIBUTION WIDTH (BEAKER) (test 16.9 % 11.6-14.4 oxax=217) PLATELET COUNT (BEAKER) (test gwvp=764) 375 K/CU MM 150-450 MEAN PLATELET VOLUME (BEAKER) (test tajz=560) 8.6 fL 9.4-12.4 NUCLEATED RED BLOOD CELLS (BEAKER) (test 0 /100 WBC 0-0 vunr=652) NEUTROPHILS RELATIVE PERCENT (BEAKER) (test 83 % qukx=818) LYMPHOCYTES RELATIVE PERCENT (BEAKER) (test 7 % fkzj=381) MONOCYTES RELATIVE PERCENT (BEAKER) (test 7 % nbag=304) EOSINOPHILS RELATIVE PERCENT (BEAKER) (test 2 % ioqd=288) BASOPHILS RELATIVE PERCENT (BEAKER) (test 1 % qgro=488) NEUTROPHILS ABSOLUTE COUNT (BEAKER) (test 8.33 K/ L 1.78-5.38 hrnz=953) LYMPHOCYTES ABSOLUTE COUNT (BEAKER) (test 0.69 K/ L 1.32-3.57 mcre=698) MONOCYTES ABSOLUTE COUNT (BEAKER) (test 0.65 K/ L 0.30-0.82 nhej=229) EOSINOPHILS ABSOLUTE COUNT (BEAKER) (test 0.24 K/ L 0.04-0.54 pqew=915) BASOPHILS ABSOLUTE COUNT (BEAKER) (test 0.06 K/ L 0.01-0.08 yhku=938) IMMATURE GRANULOCYTES-RELATIVE PERCENT (BEAKER) 0 % 0-1 (test mrin=8731) POCT-GLUCOSE [id number] 20:34:00 Test Item Value Reference Range Comments POC-GLUCOSE METER (BEAKER) 288 mg/dL 70-110 TESTED AT [address] (test qyts=6664) [place] [address] POCT-GLUCOSE [id number] 19:19:00 Test Item Value Reference Range Comments POC-GLUCOSE METER (BEAKER) 225 mg/dL 70-110 TESTED AT [address] (test apzj=5752) [place] [address] POCT-GLUCOSE [id number] 16:48:00 Test Item Value Reference Range Comments POC-GLUCOSE METER (BEAKER) 229 mg/dL 70-110 TESTED AT [address] (test wber=6242) [place] [address] POCT-GLUCOSE [id number] 12:51:00 Test Item Value Reference Range Comments POC-GLUCOSE METER (BEAKER) 261 mg/dL 70-110 TESTED AT [address] (test fxhs=0320) [place] [address] POCT-GLUCOSE [id number] 09:03:00 Test Item Value Reference Range Comments POC-GLUCOSE METER (BEAKER) 321 mg/dL 70-110 TESTED AT [address] (test olgi=9115) [place] [address] HEPATIC FUNCTION [id number] 08:08:00 Test Item Value Reference Range Comments TOTAL PROTEIN (BEAKER) (test vqmq=400) 6.7 gm/dL 6.0-8.3 ALBUMIN (BEAKER) (test zzwn=8161) 3.1 g/dL 3.5-5.0 BILIRUBIN TOTAL (BEAKER) (test yzkc=459) 1.1 mg/dL 0.2-1.2 BILIRUBIN DIRECT (BEAKER) (test mgns=581) 0.6 mg/dL 0.1-0.5 ALKALINE PHOSPHATASE (BEAKER) (test cvtq=714) 136 U/L 40-150 AST (SGOT) (BEAKER) (test uaxc=595) 13 U/L 5-34 ALT (SGPT) (BEAKER) (test myzp=064) 13 U/L 6-55 BASIC METABOLIC [id number] 08:08:00 Test Item Value Reference Range Comments SODIUM (BEAKER) (test 134 meq/L 136-145 czqo=772) POTASSIUM (BEAKER) (test 3.3 meq/L 3.5-5.1 eftr=859) CHLORIDE (BEAKER) (test 97 meq/L 98-107 iens=106) CO2 (BEAKER) (test 28 meq/L 22-29 vmbl=526) BLOOD UREA NITROGEN 23 mg/dL 7-21 (BEAKER) (test pweu=984) CREATININE (BEAKER) (test 2.13 mg/dL 0.57-1.25 zoyg=186) GLUCOSE RANDOM (BEAKER) 331 mg/dL 70-105 (test muot=655) CALCIUM (BEAKER) (test 8.8 mg/dL 8.4-10.2 ztvm=401) EGFR (BEAKER) (test 32 mL/min/1.73 sq m ESTIMATED GFR IS NOT uubt=3906) ACCURATE CREATININE CLEARANCE IN PREDICTING GLOMERULAR FILTRATION RATE. ESTIMATED GFR IS NOT APPLICABLE FOR DIALYSIS PATIENTS. [id number] 07:54:00 Test Item Value Reference Range Comments FERRITIN (BEAKER) (test livv=901) 148 ng/mL 5-275 IRON, TIBC, % SAT. (WITHOUT FERRITIN)[id number] 07:41:00 Test Item Value Reference Range Comments IRON (BEAKER) (test znip=629) 19 ug/dL 40-160 TOTAL IRON BINDING CAPACITY (BEAKER) (test 223 ug/dL 250-450 bwyj=271) IRON % SATURATION (2) (BEAKER) (test dtvs=3111) 9 % 20-55 PROTHROMBIN [id number] 06:54:00 Test Item Value Reference Range Comments PROTIME (BEAKER) (test cdri=446) 17.5 seconds 11.7-14.7 INR (BEAKER) (test mphc=340) 1.4 <=5.9 RECOMMENDED COUMADIN/WARFARIN INR THERAPY RANGESSTANDARD DOSE: 2.0 - 3.0 Includes: PROPHYLAXIS forvenous thrombosis, systemic embolization; TREATMENT for venous thrombosis and/or pulmonary embolus.HIGH RISK: Target INR is 2.5-3.5 for patients with mechanical heart valves.POCT-GLUCOSE [id number] 21:33:00 Test Item Value Reference Range Comments POC-GLUCOSE METER (BEAKER) 307 mg/dL 70-110 Notified DARIN VELÁSQUEZ/TESTED AT [facility] (test sjmp=9977) [address] [place] [address] POCT-GLUCOSE [id number] 17:41:00 Test Item Value Reference Range Comments POC-GLUCOSE METER (BEAKER) 357 mg/dL 70-110 Notified DARIN VELÁSQUEZ/TESTED AT [facility] (test ihlw=2862) [address] [place] [address] VANCOMYCIN LEVEL, [id number] 12:42:00 Test Item Value Reference Range Comments VANCOMYCIN RANDOM (BEAKER) (test bycq=756) 11.7 ug/mL Reference Range: No NormalsPOCT-GLUCOSE [id number] 10:27:00 Test Item Value Reference Range Comments POC-GLUCOSE METER (BEAKER) 370 mg/dL 70-110 Notified DARIN VELÁSQUEZ/TESTED AT [facility] (test lpqz=9592) [address] [place] [address] CBC W/PLT COUNT & AUTO [id number] 08:34:00 Test Item Value Reference Range Comments WHITE BLOOD CELL COUNT (BEAKER) (test wrsk=840) 12.1 K/ L 3.5-10.5 RED BLOOD CELL COUNT (BEAKER) (test mwec=561) 4.21 M/ L 4.63-6.08 HEMOGLOBIN (BEAKER) (test koqz=106) 10.2 GM/DL 13.7-17.5 HEMATOCRIT (BEAKER) (test vfpu=803) 31.9 % 40.1-51.0 MEAN CORPUSCULAR VOLUME (BEAKER) (test uhuw=543) 75.8 fL 79.0-92.2 MEAN CORPUSCULAR HEMOGLOBIN (BEAKER) (test 24.2 pg 25.7-32.2 zocn=292) MEAN CORPUSCULAR HEMOGLOBIN CONC (BEAKER) (test 32.0 GM/DL 32.3-36.5 tjli=037) RED CELL DISTRIBUTION WIDTH (BEAKER) (test 16.7 % 11.6-14.4 mpcj=595) PLATELET COUNT (BEAKER) (test eibd=338) 320 K/CU MM 150-450 MEAN PLATELET VOLUME (BEAKER) (test ohxy=763) 9.0 fL 9.4-12.4 NUCLEATED RED BLOOD CELLS (BEAKER) (test 0 /100 WBC 0-0 uzny=344) NEUTROPHILS RELATIVE PERCENT (BEAKER) (test 83 % chgn=389) LYMPHOCYTES RELATIVE PERCENT (BEAKER) (test 7 % pqvu=593) MONOCYTES RELATIVE PERCENT (BEAKER) (test 8 % feyw=347) EOSINOPHILS RELATIVE PERCENT (BEAKER) (test 2 % ffmh=597) BASOPHILS RELATIVE PERCENT (BEAKER) (test 1 % cwpv=788) NEUTROPHILS ABSOLUTE COUNT (BEAKER) (test 10.02 K/ L 1.78-5.38 wkxe=616) LYMPHOCYTES ABSOLUTE COUNT (BEAKER) (test 0.84 K/ L 1.32-3.57 qxud=859) MONOCYTES ABSOLUTE COUNT (BEAKER) (test 0.91 K/ L 0.30-0.82 dxpk=123) EOSINOPHILS ABSOLUTE COUNT (BEAKER) (test 0.21 K/ L 0.04-0.54 qvxl=282) BASOPHILS ABSOLUTE COUNT (BEAKER) (test 0.07 K/ L 0.01-0.08 ctzn=262) IMMATURE GRANULOCYTES-RELATIVE PERCENT (BEAKER) 1 % 0-1 (test awvf=3793) HEMOGLOBIN [id number] 08:27:00 Test Item Value Reference Range Comments HEMOGLOBIN A1C (BEAKER) (test jvtw=525) 14.5 % 4.3-6.1 HEPATIC FUNCTION [id number] 07:08:00 Test Item Value Reference Range Comments TOTAL PROTEIN (BEAKER) (test vyjx=405) 7.0 gm/dL 6.0-8.3 ALBUMIN (BEAKER) (test iecq=3136) 3.2 g/dL 3.5-5.0 BILIRUBIN TOTAL (BEAKER) (test seji=048) 1.5 mg/dL 0.2-1.2 BILIRUBIN DIRECT (BEAKER) (test vmpp=731) 0.8 mg/dL 0.1-0.5 ALKALINE PHOSPHATASE (BEAKER) (test cubg=858) 134 U/L 40-150 AST (SGOT) (BEAKER) (test erwt=394) 12 U/L 5-34 ALT (SGPT) (BEAKER) (test qati=375) 13 U/L 6-55 BASIC METABOLIC [id number] 07:08:00 Test Item Value Reference Range Comments SODIUM (BEAKER) (test 133 meq/L 136-145 ksqj=615) POTASSIUM (BEAKER) (test 3.3 meq/L 3.5-5.1 qkds=421) CHLORIDE (BEAKER) (test 96 meq/L 98-107 fjmh=337) CO2 (BEAKER) (test 28 meq/L 22-29 bggl=304) BLOOD UREA NITROGEN 22 mg/dL 7-21 (BEAKER) (test zncp=322) CREATININE (BEAKER) (test 1.93 mg/dL 0.57-1.25 jvcj=377) GLUCOSE RANDOM (BEAKER) 282 mg/dL 70-105 (test sjmb=886) CALCIUM (BEAKER) (test 9.2 mg/dL 8.4-10.2 yezf=303) EGFR (BEAKER) (test 36 mL/min/1.73 sq m ESTIMATED GFR IS NOT sgrb=2011) ACCURATE CREATININE CLEARANCE IN PREDICTING GLOMERULAR FILTRATION RATE. ESTIMATED GFR IS NOT APPLICABLE FOR DIALYSIS PATIENTS. PROTHROMBIN [id number] 06:25:00 Test Item Value Reference Range Comments PROTIME (BEAKER) (test sivg=785) 20.0 seconds 11.7-14.7 INR (BEAKER) (test oumr=465) 1.7 <=5.9 RECOMMENDED COUMADIN/WARFARIN INR THERAPY RANGESSTANDARD DOSE: 2.0 - 3.0 Includes: PROPHYLAXIS forvenous thrombosis, systemic embolization; TREATMENT for venous thrombosis and/or pulmonary embolus.HIGH RISK: Target INR is 2.5-3.5 for patients with mechanical heart valves.POCT-GLUCOSE [id number] 21:47:00 Test Item Value Reference Range Comments POC-GLUCOSE METER (BEAKER) 480 mg/dL 70-110 Notified DARIN VELÁSQUEZ/TESTED AT [facility] (test zxbk=2728) [address] [place] [address] RAD, TOE(S), MIN 2 VIEWS, [id number] 19:07:00Reason for exam:-> gangrenous left 5th toeFINAL REPORT CLINICAL HISTORY: Gangrenous left fifth toe COMPARISON: None. FINDINGS: 3 views of the left foot are submitted. There is soft tissue gas and swelling overlying the left fifth digit, centered on the metatarsal phalangeal joint. The overlying soft tissue gas and irregularity limits the evaluation for an underlying subtle cortical disruption but none is definitely identified. No obvious destructive bony lesion is noted. The gas appears circumferential around the fifth digit and extends to the lateral margin of the fourth metacarpal phalangeal joint. Because the soft tissue gas extends to the bone surface, the appearance is highly concerning for osteomyelitis. Further evaluation with MRI or three-phase bone scan is recommended. Signed: Krish Dave MDReport Verified Date/Time: 19:07:47 Reading Location: [address] Reading Room OSMOLALITY , [id number] 18:54:00 Test Item Value Reference Range Comments OSMOLALITY, SERUM (BEAKER) (test anxk=014) 298 mOsm/kg 275-295 KETONE, [id number] 17:47:00 Test Item Value Reference Range Comments KETONES, BLOOD (BEAKER) (test koyd=4140) 0.5 mmol/L <0.4 BLOOD GAS, [id number] 17:45:00 Test Item Value Reference Range Comments PH VENOUS (BEAKER) (test lmxz=237) 7.44 7.32-7.42 PCO2 VENOUS (BEAKER) (test tmjg=300) 41 mmHg 41-51 PO2 VENOUS (BEAKER) (test qnip=221) 39 mmHg 25-40 O2 SATURATION VENOUS (BEAKER) (test bawk=078) 75.3 % 40.0-70.0 HCO3 VENOUS (BEAKER) (test mlbh=774) 27 mmol/L 21-29 BASE EXCESS VENOUS (BEAKER) (test hisw=158) 2.4 mmol/L -2.0-3.0 PATIENT TEMPERATURE (BEAKER) (test fotm=1071) 37.0 C FIO2 (BEAKER) (test vygf=8071) 21.0 % BASIC METABOLIC [id number] 15:44:00 Test Item Value Reference Range Comments SODIUM (BEAKER) (test 129 meq/L 136-145 tkjw=303) POTASSIUM (BEAKER) (test 3.9 meq/L 3.5-5.1 xlxd=504) CHLORIDE (BEAKER) (test 93 meq/L 98-107 thxp=353) CO2 (BEAKER) (test 25 meq/L 22-29 ecaz=804) BLOOD UREA NITROGEN 21 mg/dL 7-21 (BEAKER) (test kutb=168) CREATININE (BEAKER) (test 1.97 mg/dL 0.57-1.25 udxs=093) GLUCOSE RANDOM (BEAKER) 555 mg/dL 70-105 (test zbgm=593) CALCIUM (BEAKER) (test 9.2 mg/dL 8.4-10.2 kmcx=405) EGFR (BEAKER) (test 35 mL/min/1.73 sq m ESTIMATED GFR IS NOT ligz=4796) ACCURATE CREATININE CLEARANCE IN PREDICTING GLOMERULAR FILTRATION RATE. ESTIMATED GFR IS NOT APPLICABLE FOR DIALYSIS PATIENTS. CBC W/PLT COUNT & AUTO [id number] 15:36:00 Test Item Value Reference Range Comments WHITE BLOOD CELL COUNT (BEAKER) (test oomd=749) 15.7 K/ L 3.5-10.5 RED BLOOD CELL COUNT (BEAKER) (test fact=951) 4.33 M/ L 4.63-6.08 HEMOGLOBIN (BEAKER) (test dxqx=299) 10.2 GM/DL 13.7-17.5 HEMATOCRIT (BEAKER) (test vkmq=529) 32.7 % 40.1-51.0 MEAN CORPUSCULAR VOLUME (BEAKER) (test uxtk=480) 75.5 fL 79.0-92.2 MEAN CORPUSCULAR HEMOGLOBIN (BEAKER) (test 23.6 pg 25.7-32.2 wloc=554) MEAN CORPUSCULAR HEMOGLOBIN CONC (BEAKER) (test 31.2 GM/DL 32.3-36.5 dmqf=699) RED CELL DISTRIBUTION WIDTH (BEAKER) (test 16.2 % 11.6-14.4 zydv=159) PLATELET COUNT (BEAKER) (test bxwy=628) 299 K/CU MM 150-450 MEAN PLATELET VOLUME (BEAKER) (test ebxf=690) 8.7 fL 9.4-12.4 NUCLEATED RED BLOOD CELLS (BEAKER) (test 0 /100 WBC 0-0 ojji=517) NEUTROPHILS RELATIVE PERCENT (BEAKER) (test 89 % pyvl=441) LYMPHOCYTES RELATIVE PERCENT (BEAKER) (test 4 % tfer=502) MONOCYTES RELATIVE PERCENT (BEAKER) (test 6 % ecue=886) EOSINOPHILS RELATIVE PERCENT (BEAKER) (test 1 % frkq=873) BASOPHILS RELATIVE PERCENT (BEAKER) (test 0 % bbxy=325) NEUTROPHILS ABSOLUTE COUNT (BEAKER) (test 13.88 K/ L 1.78-5.38 baxi=636) LYMPHOCYTES ABSOLUTE COUNT (BEAKER) (test 0.56 K/ L 1.32-3.57 ezxn=661) MONOCYTES ABSOLUTE COUNT (BEAKER) (test 0.98 K/ L 0.30-0.82 wtjq=079) EOSINOPHILS ABSOLUTE COUNT (BEAKER) (test 0.08 K/ L 0.04-0.54 dhgd=338) BASOPHILS ABSOLUTE COUNT (BEAKER) (test 0.07 K/ L 0.01-0.08 szed=226) IMMATURE GRANULOCYTES-RELATIVE PERCENT (BEAKER) 1 % 0-1 (test yqwd=4613) [id number] 15:29:00 Test Item Value Reference Range Comments PROTIME (BEAKER) (test gdua=853) 20.3 seconds 11.7-14.7 INR (BEAKER) (test sgsa=403) 1.7 <=5.9 PARTIAL THROMBOPLASTIN TIME (BEAKER) (test 34.3 seconds 22.5-36.0 tyia=374) RECOMMENDED COUMADIN/WARFARIN INR THERAPY RANGESSTANDARD DOSE: 2.0 - 3.0 Includes: PROPHYLAXIS forvenous thrombosis, systemic embolization; TREATMENT for venous thrombosis and/or pulmonary embolus.HIGH RISK: Target INR is 2.5-3.5 for patients with mechanical heart valves.FUNGUS CULTURE + [id number] 03: 18:00 Test Item Value Reference Range Comments CULTURE (BEAKER) (test No fungus isolated in 28 days cfzu=9596) FUNGUS SMEAR (BEAKER) (test No fungi seen txif=1638) TISSUE [id number] 13:49:00Surgical Pathology Report Case: [id number] Authorizing Provider: Leana Greenfield DPM Ordering Provider: Leana Greenfield DPM OrderingLocation: [facility] Collected: 1212 SERVICES Pathologist: Pushpa Lopez Received: 03/14/2017 [address] Specimens: A) - Ulcer, RIGHT FOOT ULCER B) - Toe, Right, RIGHT FIRST METATARSAL BONE A. SKIN, RIGHT FOOT, ULCER, EXCISION AND DEBRIDEMENT: - SKIN WITH ULCER, NECROSIS AND ACUTE INFLAMMATION - BROWN AND BRENN STAIN IS POSITIVE FOR GRAM POSITIVE COCCI - PLEASE SEE COMMENTB. BONE, RIGHT FIRST METATARSAL, AMPUTATION: - BONE WITH CHRONIC REACTIVE CHANGES - NO ACUTE INFLAMMATION Signing Pathologist Direct Phone Line: [phone] see corresponding microbiology cultures.08088 x 2; 42480Coqjbn nonhealing wound right footA. Right foot ulcerB. Right first metatarsal boneSpecimen A: Received in formalin labeled "ulcer", description "right foot ulcer" is a 4.5 x 2.0 cm, pale-mandujano to red, karatotic, focallyulcerated ellipse of skin excised to a depth of 2.0 cm. Sectioning reveals no discrete masses. Scale Balancer sections are submitted in cassettes A1-A3.Specimen B: Received in formalin labeled "toe, right", description "right first metatarsal bone" is a 3.5 x 3.0 x 2.0 cm, franklin-white to yellow-mandujano, irregular portion of bone. The specimen is serially sectioned, and development representative sections are submitted in cassettes B1-B3 for decalcification. DB/ewPerformed.The following special studies were performedon this case and the interpretation is incorporated in the diagnostic report above : Blanco (block A1).ANAEROBIC [id number] 15:19:00 Test Item Value Reference Range Comments CULTURE (BEAKER) (test enxc=9610) 2+ Prevotella melaninogenica SURGICALLY OBTAINED CULTURE + GRAM [id number] 11:38:00 Test Item Value Reference Range Comments CULTURE (BEAKER) (test KLEBSIELLA OXYTOCA 4+ Klebsiella oxytoca qhot=5348) Amikacin (test code=1) Ampicillin + Sulbactam (test code=6) Aztreonam (test code=32) Cefepime (test code=51) Cefoxitin (test code=68) Ceftazidime (test code=27) Ceftriaxone (test code=52) Ertapenem (test code=38) Gentamicin (test code=18) Levofloxacin (test code=22) Meropenem (test code=34) Piperacillin + Tazobactam (test code=29) Tetracycline (test code=2) Tobramycin (test code=25) Trimethoprim + Sulfamethoxazole (test code=47) CULTURE (BEAKER) (test ENTEROCOCCUS SPECIES 2+ Enterococcus evkk=94606) species Ampicillin (test code=26) Linezolid (test code=40) Tetracycline (test code=2) Vancomycin (test code=13) CULTURE (BEAKER) (test 2+ Diphtheroid qygz=100664) GRAM STAIN RESULT (BEAKER) 1+ WBCs (test kntf=4760) GRAM STAIN RESULT (BEAKER) 3+ gram negative rods (test zarn=013363) GRAM STAIN RESULT (BEAKER) 3+ gram negative rods (test sxab=389904) GRAM STAIN RESULT (BEAKER) 3+ gram positive rods (test yert=638819) CULTURE (BEAKER) (test 2+ Diphtheroid wmnk=931599) GRAM STAIN RESULT (BEAKER) 3+ gram positive cocci (test cypu=882977) POCT-GLUCOSE [id number] 13:28:00 Test Item Value Reference Range Comments POC-GLUCOSE METER (BEAKER) 304 mg/dL 70-110 Notified DARIN VELÁSQUEZ/TESTED AT [facility] (test kdtz=1387) [address] [place] [address] POCT-GLUCOSE [id number] 10:55:00 Test Item Value Reference Range Comments POC-GLUCOSE METER (BEAKER) 391 mg/dL 70-110 Notified DARIN MD/TESTED AT [facility] (test dosb=4052) [address] [place] [address] POCT-GLUCOSE [id number] 10:41:00 Test Item Value Reference Range Comments POC-GLUCOSE METER (BEAKER) 347 mg/dL 70-110 Notified DARIN VELÁSQUEZ/TESTED AT [facility] (test abzw=3207) [address] [place] [address] GLUCOSE-STAT [id number] 09:48:00 Test Item Value Reference Range Comments GLUCOSE RANDOM (BEAKER) (test izho=434) 415 mg/dL 70-110 POCT-GLUCOSE [id number] 09:31:00 Test Item Value Reference Range Comments POC-GLUCOSE METER (BEAKER) 440 mg/dL 70-110 Verify with Lab draw/TESTED AT (test yczd=6312) [address] [address] CBC W/PLT COUNT & AUTO [id number] 14:10:00 Test Item Value Reference Range Comments WHITE BLOOD CELL COUNT (BEAKER) (test vyha=573) 7.9 K/ L 4.0-10.0 RED BLOOD CELL COUNT (BEAKER) (test dhui=243) 4.83 M/ L 4.20-5.80 HEMOGLOBIN (BEAKER) (test bqwc=737) 12.5 GM/DL 13.0-16.8 HEMATOCRIT (BEAKER) (test ojgy=995) 37.6 % 40.0-50.0 MEAN CORPUSCULAR VOLUME (BEAKER) (test xvzl=530) 77.8 fL 82.0-98.0 MEAN CORPUSCULAR HEMOGLOBIN (BEAKER) (test 25.8 pg 27.0-33.0 lohf=799) MEAN CORPUSCULAR HEMOGLOBIN CONC (BEAKER) (test 33.2 GM/DL 32.0-36.0 whdc=572) RED CELL DISTRIBUTION WIDTH (BEAKER) (test 16.5 % 10.3-14.2 lbgs=995) PLATELET COUNT (BEAKER) (test iiui=205) 243 K/CU MM 150-430 MEAN PLATELET VOLUME (BEAKER) (test qkzu=884) 7.0 fL 6.5-10.5 NUCLEATED RED BLOOD CELLS (BEAKER) (test 0 /100 WBC 0-0 iupn=043) NEUTROPHILS RELATIVE PERCENT (BEAKER) (test 70 % udkq=520) LYMPHOCYTES RELATIVE PERCENT (BEAKER) (test 17 % gdhp=151) MONOCYTES RELATIVE PERCENT (BEAKER) (test 7 % wzku=069) EOSINOPHILS RELATIVE PERCENT (BEAKER) (test 5 % foaa=886) BASOPHILS RELATIVE PERCENT (BEAKER) (test 1 % ydwn=457) NEUTROPHILS ABSOLUTE COUNT (BEAKER) (test 5.57 K/ L 1.80-8.00 hqam=279) LYMPHOCYTES ABSOLUTE COUNT (BEAKER) (test 1.31 K/ L 1.48-4.50 eeso=430) MONOCYTES ABSOLUTE COUNT (BEAKER) (test 0.60 K/ L 0.00-1.30 xujt=510) EOSINOPHILS ABSOLUTE COUNT (BEAKER) (test 0.38 K/ L 0.00-0.50 xmsy=877) BASOPHILS ABSOLUTE COUNT (BEAKER) (test 0.08 K/ L 0.00-0.20 lybp=008) 0.00BASIC METABOLIC [id number] 13:51:00 Test Item Value Reference Range Comments SODIUM (BEAKER) (test 135 meq/L 136-145 nzjd=255) POTASSIUM (BEAKER) (test 3.8 meq/L 3.5-5.1 tbje=153) CHLORIDE (BEAKER) (test 99 meq/L 98-107 ylfr=055) CO2 (BEAKER) (test 26 meq/L 22-29 dcdr=483) BLOOD UREA NITROGEN 24 mg/dL 7-21 (BEAKER) (test ncvw=027) CREATININE (BEAKER) (test 2.09 mg/dL 0.57-1.25 nfch=146) GLUCOSE RANDOM (BEAKER) 353 mg/dL 70-105 (test fska=433) CALCIUM (BEAKER) (test 9.2 mg/dL 8.4-10.2 zoct=969) EGFR (BEAKER) (test 33 mL/min/1.73 sq m ESTIMATED GFR IS NOT gnrf=8490) ACCURATE CREATININE CLEARANCE IN PREDICTING GLOMERULAR FILTRATION RATE. ESTIMATED GFR IS NOT APPLICABLE FOR DIALYSIS PATIENTS. POCT-GLUCOSE [id number] 13:23:00 Test Item Value Reference Range Comments POC-GLUCOSE METER (BEAKER) 370 mg/dL 70-110 TESTED AT [address] (test etsn=5218) [facility] [address] BUN AND [id number] 14:59:00 Test Item Value Reference Range Comments BLOOD UREA NITROGEN 31 mg/dL 7-21 (BEAKER) (test sidb=131) CREATININE (BEAKER) (test 2.30 mg/dL 0.57-1.25 uoto=349) EGFR (BEAKER) (test 29 mL/min/1.73 sq m ESTIMATED GFR IS NOT iaey=5366) ACCURATE CREATININE CLEARANCE IN PREDICTING GLOMERULAR FILTRATION RATE. ESTIMATED GFR IS NOT APPLICABLE FOR DIALYSIS PATIENTS. [id number] 14:57:00 Test Item Value Reference Range Comments SODIUM (BEAKER) (test jkgs=657) 137 meq/L 136-145 POTASSIUM (BEAKER) (test hrxm=540) 3.8 meq/L 3.5-5.1 CHLORIDE (BEAKER) (test pplj=993) 96 meq/L 98-107 CO2 (BEAKER) (test ajxv=002) 29 meq/L 22-29 [id number] 14:57:00 Test Item Value Reference Range Comments GLUCOSE RANDOM (BEAKER) (test suxy=664) 347 mg/dL 70-105 Effective 09/28/2014: Reference Range Change-Adult onlyNew: 70-105 Previous : [id number] 14:33:00 Test Item Value Reference Range Comments HEMOGLOBIN (BEAKER) (test cmlm=794) 11.8 GM/DL 13.0-16.8 POCT-GLUCOSE [id number] 18:47:00 Test Item Value Reference Range Comments POC-GLUCOSE METER (BEAKER) 119 mg/dL 70-110 TESTED AT [address] (test adgc=4936) [place] [id number] POCT-GLUCOSE [id number] 16:54:00 Test Item Value Reference Range Comments POC-GLUCOSE METER (BEAKER) 115 mg/dL 70-110 TESTED AT [address] (test kapn=8548) [facility] [address] POCT-GLUCOSE [id number] 12:40:00 Test Item Value Reference Range Comments POC-GLUCOSE METER (BEAKER) 218 mg/dL 70-[address] [facility] [address] [facility] (test pahw=5361) [facility] [address] CBC W/PLT COUNT & AUTO [id number] 10:24:00 Test Item Value Reference Range Comments WHITE BLOOD CELL COUNT (BEAKER) (test atse=703) 7.2 K/ L 4.0-10.0 RED BLOOD CELL COUNT (BEAKER) (test ioew=885) 3.30 M/ L 4.20-5.80 HEMOGLOBIN (BEAKER) (test ktkd=648) 9.7 GM/DL 13.0-16.8 HEMATOCRIT (BEAKER) (test unih=920) 28.3 % 40.0-50.0 MEAN CORPUSCULAR VOLUME (BEAKER) (test csis=606) 85.9 fL 82.0-98.0 MEAN CORPUSCULAR HEMOGLOBIN (BEAKER) (test 29.5 pg 27.0-33.0 kkor=243) MEAN CORPUSCULAR HEMOGLOBIN CONC (BEAKER) (test 34.3 GM/DL 32.0-36.0 fukh=393) RED CELL DISTRIBUTION WIDTH (BEAKER) (test 17.0 % 10.3-14.2 rhfs=004) PLATELET COUNT (BEAKER) (test vocz=764) 231 K/CU MM 150-430 MEAN PLATELET VOLUME (BEAKER) (test seov=984) 6.7 fL 6.5-10.5 NUCLEATED RED BLOOD CELLS (BEAKER) (test 0 /100 WBC 0-0 plfk=000) NEUTROPHILS RELATIVE PERCENT (BEAKER) (test 72 % lary=422) LYMPHOCYTES RELATIVE PERCENT (BEAKER) (test 16 % yctk=612) MONOCYTES RELATIVE PERCENT (BEAKER) (test 9 % phxz=110) EOSINOPHILS RELATIVE PERCENT (BEAKER) (test 3 % czcc=453) BASOPHILS RELATIVE PERCENT (BEAKER) (test 1 % fmju=466) NEUTROPHILS ABSOLUTE COUNT (BEAKER) (test 5.17 K/ L 1.80-8.00 dsjs=960) LYMPHOCYTES ABSOLUTE COUNT (BEAKER) (test 1.15 K/ L 1.48-4.50 igbd=065) MONOCYTES ABSOLUTE COUNT (BEAKER) (test 0.63 K/ L 0.00-1.30 agvc=758) EOSINOPHILS ABSOLUTE COUNT (BEAKER) (test 0.22 K/ L 0.00-0.50 lrdj=112) BASOPHILS ABSOLUTE COUNT (BEAKER) (test 0.06 K/ L 0.00-0.20 iiuq=363) 0.00POCT-GLUCOSE [id number] 07:51:00 Test Item Value Reference Range Comments POC-GLUCOSE METER (BEAKER) 221 mg/dL 70-[address] [facility] [address] [facility] (test cbnz=9330) [facility] [address] BASIC METABOLIC [id number] 07:32:00 Test Item Value Reference Range Comments SODIUM (BEAKER) (test 139 meq/L 136-145 nast=311) POTASSIUM (BEAKER) (test 3.6 meq/L 3.5-5.1 vumx=249) CHLORIDE (BEAKER) (test 103 meq/L 98-107 tizv=693) CO2 (BEAKER) (test 24 meq/L 22-29 fyto=745) BLOOD UREA NITROGEN 32 mg/dL 7-21 (BEAKER) (test wkul=439) CREATININE (BEAKER) (test 2.31 mg/dL 0.57-1.25 msbx=110) GLUCOSE RANDOM (BEAKER) 210 mg/dL 70-105 (test crjy=108) CALCIUM (BEAKER) (test 8.8 mg/dL 8.4-10.2 qwgf=435) EGFR (BEAKER) (test 29 mL/min/1.73 sq m ESTIMATED GFR IS NOT smae=0434) ACCURATE CREATININE CLEARANCE IN PREDICTING GLOMERULAR FILTRATION RATE. ESTIMATED GFR IS NOT APPLICABLE FOR DIALYSIS PATIENTS. [id number] 07:27:00 Test Item Value Reference Range Comments PHOSPHORUS (BEAKER) (test eloo=238) 4.0 mg/dL 2.3-4.7 [id number] 07:27:00 Test Item Value Reference Range Comments MAGNESIUM (BEAKER) (test fyxv=263) 2.3 mg/dL 1.6-2.6 [id number] 07:14:00 Test Item Value Reference Range Comments PARTIAL THROMBOPLASTIN TIME (BEAKER) (test 42.3 seconds 22.5-36.0 scyv=855) [id number] 23:48:00 Test Item Value Reference Range Comments PARTIAL THROMBOPLASTIN TIME (BEAKER) (test 34.9 seconds 22.5-36.0 flvq=565) POCT-GLUCOSE [id number] 21:01:00 Test Item Value Reference Range Comments POC-GLUCOSE METER (BEAKER) 268 mg/dL 70-110 TESTED AT [address] (test nccu=2042) [place] [address] [id number] 17:36:00 Test Item Value Reference Range Comments PARTIAL THROMBOPLASTIN TIME (BEAKER) (test 31.3 seconds 22.5-36.0 gind=987) Prior to initiating heparinPLATELET [id number] 17:27:00 Test Item Value Reference Range Comments PLATELET COUNT (AKER) (test zoju=511) 218 K/CU MM 150-430 POCT-GLUCOSE [id number] 16:45:00 Test Item Value Reference Range Comments POC-GLUCOSE METER (BEAKER) 189 mg/dL 70-110 TESTED AT [address] (test ekgy=9364) [place] [address] POCT-GLUCOSE [id number] 14:07:00 Test Item Value Reference Range Comments POC-GLUCOSE METER (BEAKER) 183 mg/dL 70-110 TESTED AT [address] (test xlsq=9687) [place] [address] POCT-GLUCOSE [id number] 08:18:00 Test Item Value Reference Range Comments POC-GLUCOSE METER (BEAKER) 144 mg/dL 70-110 TESTED AT [address] (test veqv=4323) [place] [address] CBC W/PLT COUNT & AUTO [id number] 06:52:00 Test Item Value Reference Range Comments WHITE BLOOD CELL COUNT (BEAKER) (test irik=189) 7.6 K/ L 4.0-10.0 RED BLOOD CELL COUNT (BEAKER) (test ayol=206) 3.22 M/ L 4.20-5.80 HEMOGLOBIN (BEAKER) (test cufj=678) 9.3 GM/DL 13.0-16.8 HEMATOCRIT (BEAKER) (test ctzp=691) 27.6 % 40.0-50.0 MEAN CORPUSCULAR VOLUME (BEAKER) (test unpa=647) 85.7 fL 82.0-98.0 MEAN CORPUSCULAR HEMOGLOBIN (BEAKER) (test 28.9 pg 27.0-33.0 zcye=048) MEAN CORPUSCULAR HEMOGLOBIN CONC (BEAKER) (test 33.7 GM/DL 32.0-36.0 qbod=173) RED CELL DISTRIBUTION WIDTH (BEAKER) (test 18.1 % 10.3-14.2 nfgz=529) PLATELET COUNT (BEAKER) (test xwaa=579) 212 K/CU MM 150-430 MEAN PLATELET VOLUME (BEAKER) (test npkj=834) 6.5 fL 6.5-10.5 NUCLEATED RED BLOOD CELLS (BEAKER) (test 0 /100 WBC 0-0 ddhk=849) NEUTROPHILS RELATIVE PERCENT (BEAKER) (test 75 % cllz=026) LYMPHOCYTES RELATIVE PERCENT (BEAKER) (test 14 % rcjv=508) MONOCYTES RELATIVE PERCENT (BEAKER) (test 8 % xfbk=622) EOSINOPHILS RELATIVE PERCENT (BEAKER) (test 3 % tbdw=298) BASOPHILS RELATIVE PERCENT (BEAKER) (test 1 % ymgv=434) NEUTROPHILS ABSOLUTE COUNT (BEAKER) (test 5.72 K/ L 1.80-8.00 ekcs=683) LYMPHOCYTES ABSOLUTE COUNT (BEAKER) (test 1.06 K/ L 1.48-4.50 umfq=641) MONOCYTES ABSOLUTE COUNT (BEAKER) (test 0.59 K/ L 0.00-1.30 vwhn=481) EOSINOPHILS ABSOLUTE COUNT (BEAKER) (test 0.22 K/ L 0.00-0.50 bhcx=243) BASOPHILS ABSOLUTE COUNT (BEAKER) (test 0.04 K/ L 0.00-0.20 wmhv=204) [id number] 06:49:00 Test Item Value Reference Range Comments PHOSPHORUS (BEAKER) (test liju=592) 4.2 mg/dL 2.3-4.7 [id number] 06:49:00 Test Item Value Reference Range Comments MAGNESIUM (BEAKER) (test ojmy=153) 2.3 mg/dL 1.6-2.6 BASIC METABOLIC [id number] 06:49:00 Test Item Value Reference Range Comments SODIUM (BEAKER) (test 141 meq/L 136-145 wntk=001) POTASSIUM (BEAKER) (test 3.6 meq/L 3.5-5.1 oexc=834) CHLORIDE (BEAKER) (test 103 meq/L 98-107 cbuc=695) CO2 (BEAKER) (test 24 meq/L 22-29 inrp=086) BLOOD UREA NITROGEN 32 mg/dL 7-21 (BEAKER) (test oxfu=900) CREATININE (BEAKER) (test 2.14 mg/dL 0.57-1.25 mbqt=437) GLUCOSE RANDOM (BEAKER) 119 mg/dL 70-105 (test yusy=375) CALCIUM (BEAKER) (test 9.2 mg/dL 8.4-10.2 praq=460) EGFR (BEAKER) (test 32 mL/min/1.73 sq m ESTIMATED GFR IS NOT huew=6403) ACCURATE CREATININE CLEARANCE IN PREDICTING GLOMERULAR FILTRATION RATE. ESTIMATED GFR IS NOT APPLICABLE FOR DIALYSIS PATIENTS. TROPONIN [id number] 06:49:00 Test Item Value Reference Range Comments TROPONIN I (BEAKER) (test dfhk=622) 0.03 ng/mL 0.00-0.03 Effective 09/28/2014: Reference Range ChangeNew: 0.00-0.03 Previous 0.00- 0.15Troponin I (TnI) levels must be interpreted in the context of the presenting symptoms and the clinical findings. Elevated TnI levels indicate myocardial damage, but are not specific for ischemic heart disease. Elevated TnI levels are seen in patients with other cardiac conditions (including myocarditis and congestive heartfailure), and slight TnI elevations occur in patients with other conditions, including sepsis, renalfailure, acidosis, acute neurological disease, and persistent tachyarrhythmia.TROPONIN [id number] 22:18: 00 Test Item Value Reference Range Comments TROPONIN I (BEAKER) (test ddkh=608) 0.04 ng/mL 0.00-0.03 Effective 09/28/2014: Reference Range ChangeNew: 0.00-0.03 Previous 0.00- 0.15Troponin I (TnI) levels must be interpreted in the context of the presenting symptoms and the clinical findings. Elevated TnI levels indicate myocardial damage, but are not specific for ischemic heart disease. Elevated TnI levels are seen in patients with other cardiac conditions (including myocarditis and congestive heartfailure), and slight TnI elevations occur in patients with other conditions, including sepsis, renalfailure, acidosis, acute neurological disease, and persistent tachyarrhythmia.POCT-GLUCOSE [id number] 21:11:00 Test Item Value Reference Range Comments POC-GLUCOSE METER (BEAKER) 164 mg/dL 70-110 TESTED AT [address] (test xdrd=6911) [facility] [address] POCT-GLUCOSE [id number] 18:11:00 Test Item Value Reference Range Comments POC-GLUCOSE METER (BEAKER) 130 mg/dL 70-110 TESTED AT [address] (test uvvb=3114) [facility] [address] URINALYSIS W/ [id number] 12:52:00 Test Item Value Reference Range Comments COLOR (BEAKER) (test zsnj=118) Colorless CLARITY (BEAKER) (test kvjd=594) Clear SPECIFIC GRAVITY UA (BEAKER) (test admm=509) 1.005 1.001-1.035 PH UA (BEAKER) (test mnmd=438) 5.5 5.0-8.0 PROTEIN UA (BEAKER) (test dxag=993) Negative Negative GLUCOSE UA (BEAKER) (test bqyo=629) 50 mg/dL Negative KETONES UA (BEAKER) (test orol=322) Negative Negative BILIRUBIN UA (BEAKER) (test chpq=891) Negative Negative BLOOD UA (BEAKER) (test ccpe=348) Negative Negative NITRITE UA (BEAKER) (test wrzr=859) Negative Negative LEUKOCYTE ESTERASE UA (BEAKER) (test zgpu=950) Negative Negative UROBILINOGEN UA (BEAKER) (test pddd=014) 0.2 mg/dL 0.2-1.0 RBC UA (BEAKER) (test crto=751) 0 /HPF WBC UA (BEAKER) (test euzj=437) 0 /HPF HYALINE CASTS (BEAKER) (test mook=797) 3 /LPF SOURCE(BEAKER) (test rail=4766) TROPONIN [id number] 12:27:00 Test Item Value Reference Range Comments TROPONIN I (BEAKER) (test dxxq=595) 0.03 ng/mL 0.00-0.03 Effective 09/28/2014: Reference Range ChangeNew: 0.00-0.03 Previous 0.00- 0.15Troponin I (TnI) levels must be interpreted in the context of the presenting symptoms and the clinical findings. Elevated TnI levels indicate myocardial damage, but are not specific for ischemic heart disease. Elevated TnI levels are seen in patients with other cardiac conditions (including myocarditis and congestive heartfailure), and slight TnI elevations occur in patients with other conditions, including sepsis, renalfailure, acidosis, acute neurological disease, and persistent tachyarrhythmia.POCT-GLUCOSE [id number] 12:26:00 Test Item Value Reference Range Comments POC-GLUCOSE METER (BEAKER) 196 mg/dL 70-110 TESTED AT [address] (test kmjw=8101) [place] [address] [id number] 10:35:00 Test Item Value Reference Range Comments FERRITIN (BEAKER) (test aahh=339) 35 ng/mL 5-275 Effective 09/28/2014: Reference Range ChangeNew: Male 5-275 Previous: Male 22-322 Female 5-275 Female 27-574XUJW-VOSJUNM [id number] 08:19:00 Test Item Value Reference Range Comments POC-GLUCOSE METER (BEAKER) 248 mg/dL 70-110 TESTED AT [address] (test oexp=2564) [facility] [address] [id number] 05:53:00 Test Item Value Reference Range Comments PHOSPHORUS (BEAKER) (test izpq=670) 3.4 mg/dL 2.3-4.7 [id number] 05:53:00 Test Item Value Reference Range Comments MAGNESIUM (BEAKER) (test huhn=050) 2.3 mg/dL 1.6-2.6 BASIC METABOLIC [id number] 05:53:00 Test Item Value Reference Range Comments SODIUM (BEAKER) (test 136 meq/L 136-145 pboz=940) POTASSIUM (BEAKER) (test 3.9 meq/L 3.5-5.1 qriw=919) CHLORIDE (BEAKER) (test 102 meq/L 98-107 rsdm=373) CO2 (BEAKER) (test 24 meq/L 22-29 gsyv=257) BLOOD UREA NITROGEN 37 mg/dL 7-21 (BEAKER) (test clhp=879) CREATININE (BEAKER) (test 2.26 mg/dL 0.57-1.25 msfe=649) GLUCOSE RANDOM (BEAKER) 261 mg/dL 70-105 (test gbgo=490) CALCIUM (BEAKER) (test 9.2 mg/dL 8.4-10.2 zvyc=052) EGFR (BEAKER) (test 30 mL/min/1.73 sq m ESTIMATED GFR IS NOT oswp=4255) ACCURATE CREATININE CLEARANCE IN PREDICTING GLOMERULAR FILTRATION RATE. ESTIMATED GFR IS NOT APPLICABLE FOR DIALYSIS PATIENTS. CBC W/PLT COUNT & AUTO [id number] 05:53:00 Test Item Value Reference Range Comments WHITE BLOOD CELL COUNT (BEAKER) (test vogo=550) 7.4 K/ L 4.0-10.0 RED BLOOD CELL COUNT (BEAKER) (test fngj=124) 3.24 M/ L 4.20-5.80 HEMOGLOBIN (BEAKER) (test xihn=809) 9.4 GM/DL 13.0-16.8 HEMATOCRIT (BEAKER) (test xmhv=971) 27.3 % 40.0-50.0 MEAN CORPUSCULAR VOLUME (BEAKER) (test ptsd=731) 84.2 fL 82.0-98.0 MEAN CORPUSCULAR HEMOGLOBIN (BEAKER) (test 28.9 pg 27.0-33.0 doji=183) MEAN CORPUSCULAR HEMOGLOBIN CONC (BEAKER) (test 34.4 GM/DL 32.0-36.0 nswf=908) RED CELL DISTRIBUTION WIDTH (BEAKER) (test 18.2 % 10.3-14.2 facy=822) PLATELET COUNT (BEAKER) (test eyut=188) 208 K/CU MM 150-430 MEAN PLATELET VOLUME (BEAKER) (test iauu=972) 6.4 fL 6.5-10.5 NUCLEATED RED BLOOD CELLS (BEAKER) (test 0 /100 WBC 0-0 blrl=680) NEUTROPHILS RELATIVE PERCENT (BEAKER) (test 75 % oswi=681) LYMPHOCYTES RELATIVE PERCENT (BEAKER) (test 14 % dguz=047) MONOCYTES RELATIVE PERCENT (BEAKER) (test 7 % rltk=538) EOSINOPHILS RELATIVE PERCENT (BEAKER) (test 3 % qxpg=471) BASOPHILS RELATIVE PERCENT (BEAKER) (test 1 % hggj=853) NEUTROPHILS ABSOLUTE COUNT (BEAKER) (test 5.54 K/ L 1.80-8.00 afvm=751) LYMPHOCYTES ABSOLUTE COUNT (BEAKER) (test 1.06 K/ L 1.48-4.50 dioa=440) MONOCYTES ABSOLUTE COUNT (BEAKER) (test 0.54 K/ L 0.00-1.30 fiwr=928) EOSINOPHILS ABSOLUTE COUNT (BEAKER) (test 0.20 K/ L 0.00-0.50 ifbb=626) BASOPHILS ABSOLUTE COUNT (BEAKER) (test 0.06 K/ L 0.00-0.20 mxta=760) 0.00IRON, TIBC, % SAT. (WITHOUT FERRITIN)2017-01-16 05:44:00 Test Item Value Reference Range Comments IRON (BEAKER) (test hdao=609) 30 ug/dL 40-160 TOTAL IRON BINDING CAPACITY (BEAKER) (test 396 ug/dL 250-450 ytdm=813) IRON % SATURATION (2) (BEAKER) (test ylam=3285) 8 % 20-55 POCT-GLUCOSE [id number] 22:02:00 Test Item Value Reference Range Comments POC-GLUCOSE METER (BEAKER) 229 mg/dL 70-110 TESTED AT [address] (test xzey=4024) [place] [address] POCT-GLUCOSE [id number] 17:22:00 Test Item Value Reference Range Comments POC-GLUCOSE METER (BEAKER) 139 mg/dL 70-110 TESTED AT [address] (test pfcj=2659) [place] [address] CREATININE, RANDOM [id number] 14:33:00 Test Item Value Reference Range Comments CREATININE URINE (BEAKER) (test alwi=920) 141.0 mg/dL Reference Range: No NormalsUREA NITROGEN, RANDOM [id number] 14:33:00 Test Item Value Reference Range Comments UREA NITROGEN URINE (BEAKER) (test ueen=190) 1122 mg/dL Reference Range: No NormalsPOCT-GLUCOSE [id number] 12:49:00 Test Item Value Reference Range Comments POC-GLUCOSE METER (BEAKER) 166 mg/dL 70-110 TESTED AT [address] (test qihn=4456) [facility] [address] HEMOGLOBIN [id number] 08:28:00 Test Item Value Reference Range Comments HEMOGLOBIN A1C (BEAKER) (test ffyv=383) 9.0 % 4.3-6.1 POCT-GLUCOSE [id number] 08:06:00 Test Item Value Reference Range Comments POC-GLUCOSE METER (BEAKER) 248 mg/dL 70-[address] [facility] [address] [address] (test wicz=9770) [facility] [address] [id number] 07:39:00 Test Item Value Reference Range Comments PHOSPHORUS (BEAKER) (test vutc=063) 2.7 mg/dL 2.3-4.7 [id number] 07:39:00 Test Item Value Reference Range Comments MAGNESIUM (BEAKER) (test xiaa=873) 2.3 mg/dL 1.6-2.6 BASIC METABOLIC [id number] 07:39:00 Test Item Value Reference Range Comments SODIUM (BEAKER) (test 136 meq/L 136-145 dllm=020) POTASSIUM (BEAKER) (test 3.8 meq/L 3.5-5.1 eovo=959) CHLORIDE (BEAKER) (test 105 meq/L 98-107 eser=646) CO2 (BEAKER) (test 22 meq/L 22-29 widc=350) BLOOD UREA NITROGEN 39 mg/dL 7-21 (BEAKER) (test mjtj=003) CREATININE (BEAKER) (test 2.06 mg/dL 0.57-1.25 gvyf=899) GLUCOSE RANDOM (BEAKER) 194 mg/dL 70-105 (test txpv=451) CALCIUM (BEAKER) (test 8.9 mg/dL 8.4-10.2 weil=744) EGFR (BEAKER) (test 33 mL/min/1.73 sq m ESTIMATED GFR IS NOT yhqn=5889) ACCURATE CREATININE CLEARANCE IN PREDICTING GLOMERULAR FILTRATION RATE. ESTIMATED GFR IS NOT APPLICABLE FOR DIALYSIS PATIENTS. CBC W/PLT COUNT & AUTO [id number] 07:21:00 Test Item Value Reference Range Comments WHITE BLOOD CELL COUNT (BEAKER) (test xlbg=343) 7.5 K/ L 4.0-10.0 RED BLOOD CELL COUNT (BEAKER) (test tbko=245) 3.30 M/ L 4.20-5.80 HEMOGLOBIN (BEAKER) (test adlv=969) 9.5 GM/DL 13.0-16.8 HEMATOCRIT (BEAKER) (test pyff=631) 27.7 % 40.0-50.0 MEAN CORPUSCULAR VOLUME (BEAKER) (test jjdx=328) 84.0 fL 82.0-98.0 MEAN CORPUSCULAR HEMOGLOBIN (BEAKER) (test 28.9 pg 27.0-33.0 ebju=435) MEAN CORPUSCULAR HEMOGLOBIN CONC (BEAKER) (test 34.4 GM/DL 32.0-36.0 yuhq=381) RED CELL DISTRIBUTION WIDTH (BEAKER) (test 18.3 % 10.3-14.2 aquz=375) PLATELET COUNT (BEAKER) (test hqwk=176) 220 K/CU MM 150-430 MEAN PLATELET VOLUME (BEAKER) (test gtak=834) 6.2 fL 6.5-10.5 NUCLEATED RED BLOOD CELLS (BEAKER) (test 0 /100 WBC 0-0 cfgc=281) NEUTROPHILS RELATIVE PERCENT (BEAKER) (test 75 % vaqh=751) LYMPHOCYTES RELATIVE PERCENT (BEAKER) (test 13 % mhly=228) MONOCYTES RELATIVE PERCENT (BEAKER) (test 9 % zdyt=028) EOSINOPHILS RELATIVE PERCENT (BEAKER) (test 3 % czlu=824) BASOPHILS RELATIVE PERCENT (BEAKER) (test 1 % kgks=731) NEUTROPHILS ABSOLUTE COUNT (BEAKER) (test 5.57 K/ L 1.80-8.00 acjb=860) LYMPHOCYTES ABSOLUTE COUNT (BEAKER) (test 0.95 K/ L 1.48-4.50 pgmj=124) MONOCYTES ABSOLUTE COUNT (BEAKER) (test 0.65 K/ L 0.00-1.30 hgsg=540) EOSINOPHILS ABSOLUTE COUNT (BEAKER) (test 0.23 K/ L 0.00-0.50 kfff=446) BASOPHILS ABSOLUTE COUNT (BEAKER) (test 0.05 K/ L 0.00-0.20 vzsa=660) 0.00CREATINE KINASE (CK), TOTAL AND [id number] 23:09:00 Test Item Value Reference Range Comments CREATINE KINASE TOTAL (BEAKER) (test otib=805) 201 U/L 29-200 CREATINE KINASE-MB (BEAKER) (test qahc=592) 8.3 ng/mL 0.0-6.6 CREATINE KINASE-MB INDEX (BEAKER) (test uxts=717) 4.1 % Effective 09/28/2014: CK-MB Reference Range ChangeNew: 0.0-6.6 Previous: 0.0- 4.9CK-MB Reference Range:<6.7 Normal6.7-10.0 Borderline>10.0 AbnormalTROPONIN [id number] 23:09:00 Test Item Value Reference Range Comments TROPONIN I (BEAKER) (test irql=589) 0.03 ng/mL 0.00-0.03 Effective 09/28/2014: Reference Range ChangeNew: 0.00-0.03 Previous 0.00- 0.15Troponin I (TnI) levels must be interpreted in the context of the presenting symptoms and the clinical findings. Elevated TnI levels indicate myocardial damage, but are not specific for ischemic heart disease. Elevated TnI levels are seen in patients with other cardiac conditions (including myocarditis and congestive heartfailure), and slight TnI elevations occur in patients with other conditions, including sepsis, renalfailure, acidosis, acute neurological disease, and persistent tachyarrhythmia.B-TYPE NATRIURETIC FACTOR ( BNP)2017-01-14 23:09:00 Test Item Value Reference Range Comments B-TYPE NATRIURETIC PEPTIDE (BEAKER) (test 214 pg/mL 0-100 qmif=508) [id number] 23:02:00 Test Item Value Reference Range Comments PHOSPHORUS (BEAKER) (test nyay=774) 2.6 mg/dL 2.3-4.7 [id number] 23:02:00 Test Item Value Reference Range Comments MAGNESIUM (BEAKER) (test sqju=030) 2.3 mg/dL 1.6-2.6 BASIC METABOLIC [id number] 23:02:00 Test Item Value Reference Range Comments SODIUM (BEAKER) (test 136 meq/L 136-145 tkli=880) POTASSIUM (BEAKER) (test 3.9 meq/L 3.5-5.1 nvbv=950) CHLORIDE (BEAKER) (test 104 meq/L 98-107 xvgp=163) CO2 (BEAKER) (test 21 meq/L 22-29 lkvv=769) BLOOD UREA NITROGEN 43 mg/dL 7-21 (BEAKER) (test mxgm=306) CREATININE (BEAKER) (test 2.08 mg/dL 0.57-1.25 ljqv=227) GLUCOSE RANDOM (BEAKER) 250 mg/dL 70-105 (test etsu=215) CALCIUM (BEAKER) (test 8.7 mg/dL 8.4-10.2 dyzv=845) EGFR (BEAKER) (test 33 mL/min/1.73 sq m ESTIMATED GFR IS NOT ihui=6083) ACCURATE CREATININE CLEARANCE IN PREDICTING GLOMERULAR FILTRATION RATE. ESTIMATED GFR IS NOT APPLICABLE FOR DIALYSIS PATIENTS. [id number] 22:51:00 Test Item Value Reference Range Comments PARTIAL THROMBOPLASTIN TIME (BEAKER) (test 28.3 seconds 22.5-36.0 cqpt=627) PROTHROMBIN TIME/[id number] 22:50:00 Test Item Value Reference Range Comments PROTIME (BEAKER) (test xuxm=306) 16.2 seconds 11.7-14.7 INR (BEAKER) (test hddx=521) 1.3 <=5.9 RECOMMENDED COUMADIN/WARFARIN INR THERAPY RANGESSTANDARD DOSE: 2.0 - 3.0 Includes: PROPHYLAXIS forvenous thrombosis, systemic embolization; TREATMENT for venous thrombosis and/or pulmonary embolus.HIGH RISK: Target INR is 2.5-3.5 for patients with mechanical heart valves.CBC W/PLT COUNT & AUTO [id number] 22:46:00 Test Item Value Reference Range Comments WHITE BLOOD CELL COUNT (BEAKER) (test xsfk=419) 7.4 K/ L 4.0-10.0 RED BLOOD CELL COUNT (BEAKER) (test zyko=765) 3.27 M/ L 4.20-5.80 HEMOGLOBIN (BEAKER) (test obca=406) 9.5 GM/DL 13.0-16.8 HEMATOCRIT (BEAKER) (test bhyn=387) 27.4 % 40.0-50.0 MEAN CORPUSCULAR VOLUME (BEAKER) (test qnku=300) 83.8 fL 82.0-98.0 MEAN CORPUSCULAR HEMOGLOBIN (BEAKER) (test 29.1 pg 27.0-33.0 nhfx=477) MEAN CORPUSCULAR HEMOGLOBIN CONC (BEAKER) (test 34.7 GM/DL 32.0-36.0 xnes=187) RED CELL DISTRIBUTION WIDTH (BEAKER) (test 18.4 % 10.3-14.2 uayj=332) PLATELET COUNT (BEAKER) (test wplr=166) 216 K/CU MM 150-430 MEAN PLATELET VOLUME (BEAKER) (test xwso=782) 6.4 fL 6.5-10.5 NUCLEATED RED BLOOD CELLS (BEAKER) (test 0 /100 WBC 0-0 uvhg=870) NEUTROPHILS RELATIVE PERCENT (BEAKER) (test 78 % ucfh=817) LYMPHOCYTES RELATIVE PERCENT (BEAKER) (test 10 % hxjv=938) MONOCYTES RELATIVE PERCENT (BEAKER) (test 9 % qwwh=086) EOSINOPHILS RELATIVE PERCENT (BEAKER) (test 2 % rtxx=267) BASOPHILS RELATIVE PERCENT (BEAKER) (test 1 % jzzf=561) NEUTROPHILS ABSOLUTE COUNT (BEAKER) (test 5.77 K/ L 1.80-8.00 isxl=399) LYMPHOCYTES ABSOLUTE COUNT (BEAKER) (test 0.74 K/ L 1.48-4.50 rwrx=603) MONOCYTES ABSOLUTE COUNT (BEAKER) (test 0.64 K/ L 0.00-1.30 hooj=550) EOSINOPHILS ABSOLUTE COUNT (BEAKER) (test 0.18 K/ L 0.00-0.50 cmig=855) BASOPHILS ABSOLUTE COUNT (BEAKER) (test 0.05 K/ L 0.00-0.20 psqw=755) 0.00POCT-GLUCOSE [id number] 21:29:00 Test Item Value Reference Range Comments POC-GLUCOSE METER (BEAKER) 249 mg/dL 70-[address] [facility] [address] (test zekd=4881) [facility] [id number]
[2019-04-06] MEDS ORDERED: EPINEPHrine 1 MG/10 ML SYR ONE (03:47)
--- NOTE | 2019-04-06 06:04 | ER ---
Nurse's Notes [facility] Name: Tomás Flower Sr Age: 63 yrs Sex: Male : 1955 Arrival Date: 04/06/2019 Time: 03:04 Bed 2 Private MD: Diagnosis: Cardiac arrest Presentation: 04/06 02:56 Presenting complaint: EMS states: "pt called with a complaint of chest pain. once in [facility] the ambulance pt went unconscious. CPR and ACLS was started.". Care prior to arrival: Medication(s) given: Normal saline infusion, 500 mL, epi X 4. shocks X 5. IV initiated. 18 GA, in the left antecubital area, Oxygen administered. via AMBU bag. 02:56 Method Of Arrival: EMS: [facility] 02:56 Acuity: HEBER 1 j 02:56 Compressions began prior to arrival. [facility] 05:05 Transition of care: patient was not received from another setting of care. Onset of [facility] symptoms was April 06, 2019. Risk Assessment: Do you want to hurt yourself or someone else? Patient reports no desire to harm self or others. Initial Sepsis Screen: Does the patient meet any 2 criteria? Yes Does the patient have a suspected source of infection? No. Patient's initial sepsis screen is negative. Triage Assessment: 02:56 Pain: Unable to use pain scale. Patient is intubated. Patient is unresponsive. j Historical: - Allergies: 03:59 No Known Allergies; jd3 - Home Meds: 03:59 amiodarone 200 mg Oral tab 1 tab once daily [Active]; carvedilol 25 mg Oral tab 1 tab 2 jd3 times per day [Active]; Eliquis 5 mg Oral tab 1 tab 2 times per day [Active]; eplerenone 25 mg Oral tab 1 tab twice a day [Active]; furosemide 40 mg Oral tab 1 tab once daily [Active]; Humalog 100 unit/mL Sub-Q soln 12 unit after meals [Active]; hydrochlorothiazide 25 mg Oral tab 1 tab once daily [Active]; losartan 50 mg Oral tab 1 tab once daily [Active]; pantoprazole 40 mg Oral TbEC 1 tab 2 times per day [Active]; rosuvastatin 20 MG Oral 1 tab once daily [Active]; Toujeo SoloStar 300 unit/mL (1.5 mL) subcutaneous inpn 50 unit nightly [Active]; - PMHx: 03:59 ADD/ADHD; High Cholesterol; Myocardial infarction; Diabetes - IDDM; GERD; Hypertension; jd3 CHF; RENAL INSUFF; - PSHx: 03:59 Heart stents; Back Surgery; CABG; Cholecystectomy; Great Toe Amputation Right; jd3 - Immunization history:: Adult Immunizations unknown. - Social history:: Smoking status: unknown. - Ebola Screening: : Patient negative for fever greater than or equal to 101.5 degrees Fahrenheit, and additional compatible Ebola Virus Disease symptoms. Screenin:56 Abuse screen: family denied any abuse. Nutritional screening: No deficits noted. jd3 Tuberculosis screening: No symptoms or risk factors identified. 05:06 Fall Risk Total Onofre Fall Scale indicates No Risk (0-24 pts). jd3 Assessment: 02:56 CPR assessment: unresponsive, Ambu ventilation, cyanotic. jd3 02:56 Cardiac rhythm is PEA. General: Appears distressed, Behavior is unresponsive. CPR in jd3 progress. Neuro: Level of Consciousness is unresponsive. EENT: No signs and/or symptoms were reported regarding the EENT system. Cardiovascular: Capillary refill is > 3 seconds Rhythm is PEA. Respiratory: Airway via oral intubation. Derm: Skin is intact, Skin is clammy, Skin is pale, Skin temperature is cool. 03:07 Reassessment: No changes from previously documented assessment. shock delivered \\T\\ 200 jd3 j, CPR continued. 03:12 Reassessment: shock delivered, CPR continued. jd3 03:19 Reassessment: shock delivered, CPR continued. jd3 03:23 Reassessment: shock delivered, CPR continued. jd3 03:29 Reassessment: shock delivered, CPR continued. jd3 03:36 Reassessment: shock delivered, CPR continued. jd3 03:39 Reassessment: pt in asystole, provider pronounced . family notified and escorted jchela to pt's room. Vital Signs: 03:11 BP 153 / 137; Resp 25 A; Weight 124 kg (R); Height 6 ft. 3 in. (190.50 cm) (R); jd3 03:15 BP 144 / 38; Resp 25 A; Pulse Ox 60% on ETT ambu; jd3 03:25 BP 148 / 108; Resp 26 A; jd3 03:30 BP 54 / 25; Resp 28 A; Pulse Ox 70% on ETT ambu; jd3 03:35 BP 100 / 27; Resp 26 A; Pulse Ox 61% on ETT ambu; jd3 03:11 Body Mass Index 34.17 (124.00 kg, 190.50 cm) jd3 ED Course: 02:56 Patient has correct armband on for positive identification. panel monitor on. Pulse jd3 ox on. NIBP on. 03:03 Inserted saline lock: 20 gauge in right antecubital area, using aseptic technique. jd3 Blood collected. 03:04 Patient arrived in ED. am2 03:09 No provider procedures requiring assistance completed. Inserted saline lock: 20 gauge jd3 in left antecubital area, using aseptic technique. placed by Ana Paula WEBSTER. 03:41 Chris Soria MD is Attending Physician. gs 03:41 Chris Soria MD is Pronouncing Provider. gs 04:31 Candido Csatillo RN is Primary Nurse. jd3 04:34 Triage completed. jd3 05:07 Arm band placed on. jd3 05:18 pt with IV remaining in place upon discharge to home. jd3 Administered Medications: 03:03 Drug: EPINEPHrine 0.1mg/mL 1:10,000 1 mg Route: IVP; Site: right antecubital; jd3 03:39 Follow up: Response: No change in condition jd3 03:03 Drug: amiodarone 150 mg Route: IVP; Site: right antecubital; jd3 03:39 Follow up: Response: No change in condition jd3 03:07 Drug: amiodarone 150 mg Route: IVP; Site: right antecubital; jd3 03:39 Follow up: Response: No change in condition jd3 03:10 Drug: EPINEPHrine 0.1mg/mL 1:10,000 1 mg Route: IVP; Site: left antecubital; jd3 03:39 Follow up: Response: No change in condition jd3 03:10 Drug: Sodium Bicarbonate 1 amp Route: IVP; Site: left antecubital; jd3 03:39 Follow up: Response: No change in condition jd3 03:14 Drug: EPINEPHrine 0.1mg/mL 1:10,000 1 mg Route: IVP; Site: left antecubital; jd3 03:39 Follow up: Response: No change in condition jd3 03:17 Drug: EPINEPHrine 0.1mg/mL 1:10,000 1 mg Route: IVP; Site: left antecubital; jd3 03:39 Follow up: Response: No change in condition jd3 03:17 Drug: amiodarone 150 mg Route: IVP; Site: left antecubital; jd3 03:39 Follow up: Response: No change in condition jd3 03:20 Drug: EPINEPHrine 0.1mg/mL 1:10,000 1 mg Route: IVP; Site: left antecubital; jd3 03:39 Follow up: Response: No change in condition jd3 03:20 Drug: Sodium Bicarbonate 1 amp Route: IVP; Site: left antecubital; jd3 03:39 Follow up: Response: No change in condition jd3 03:23 Drug: EPINEPHrine 0.1mg/mL 1:10,000 1 mg Route: IVP; Site: left antecubital; jd3 03:39 Follow up: Response: No change in condition jd3 03:26 Drug: EPINEPHrine 0.1mg/mL 1:10,000 1 mg Route: IVP; Site: left antecubital; jd3 03:39 Follow up: Response: No change in condition jd3 03:30 Drug: EPINEPHrine 0.1mg/mL 1:10,000 1 mg Route: IVP; Site: left antecubital; jd3 03:39 Follow up: Response: No change in condition jd3 03:30 Drug: Sodium Bicarbonate 1 amp Route: IVP; Site: left antecubital; jd3 03:39 Follow up: Response: No change in condition jd3 03:36 Drug: EPINEPHrine 0.1mg/mL 1:10,000 1 mg Route: IVP; Site: left antecubital; jd3 03:39 Follow up: Response: No change in condition jd3 04:57 CANCELLED (Other Intervention Used): amiodarone 300 mg IVP in right antecubital once jd3 Outcome: 03:39 Outcome Patient jd3 06:00 Patient : Time of 03:39 Pronounced by Chris Soria MD Body to jd3 home. 06:03 Patient left the ED. jd3 Signatures: Aggie Newberry am2 Miguel Nga dc Chris Soria MD MD gs Davies, Jonathon, RN RN jd3 Corrections: (The following items were deleted from the chart) 04:57 03:03 amiodarone 300 mg IVP in right antecubital jd3 jd3 05:16 02:56 General: Appears distressed, Behavior is unresponsive. jd3 jd3 05:17 03:44 Inserted saline lock: 20 gauge in right antecubital area, using aseptic jd3 technique. Blood collected. dc 06:02 05:17 Condition: jd3 jd3 06:06 03:39 Response: No adverse reaction jd3 jd3 06:14 02:56 Care prior to arrival: Medication(s) given: Normal saline infusion, 500 mL, IV jd3 initiated. 18 GA, in the left antecubital area, Oxygen administered. via AMBU bag jd3
[2019-04-06 06:14] VITALS: BP 100/27; O2SAT 61
--- NOTE | 2019-04-07 08:19 | EDPHYS ---
Physician Documentation [facility] Name: Tomás Flower Sr Age: 63 yrs Sex: Male : 1955 Arrival Date: 04/06/2019 Time: 03:04 Bed 2 Private MD: ED Physician Chris Soria HPI: 04/06 06:36 This 63 yrs old Male presents to ER via EMS with complaints of CPR. gs 06:36 Preceding the arrest, the patient collapsed. The arrest occurred at home. Pre-hospital gs course: The arrest was witnessed by EMS. EMS care prior to arrival: initiation of ACLS, peripheral IV, intubation. Unable to obtain HPI due to patient distress. The patient has not experienced similar symptoms in the past. Historical: - Allergies: 03:59 No Known Allergies; jd3 - Home Meds: 03:59 amiodarone 200 mg Oral tab 1 tab once daily [Active]; carvedilol 25 mg Oral tab 1 tab 2 jd3 times per day [Active]; Eliquis 5 mg Oral tab 1 tab 2 times per day [Active]; eplerenone 25 mg Oral tab 1 tab twice a day [Active]; furosemide 40 mg Oral tab 1 tab once daily [Active]; Humalog 100 unit/mL Sub-Q soln 12 unit after meals [Active]; hydrochlorothiazide 25 mg Oral tab 1 tab once daily [Active]; losartan 50 mg Oral tab 1 tab once daily [Active]; pantoprazole 40 mg Oral TbEC 1 tab 2 times per day [Active]; rosuvastatin 20 MG Oral 1 tab once daily [Active]; Toujeo SoloStar 300 unit/mL (1.5 mL) subcutaneous inpn 50 unit nightly [Active]; - PMHx: 03:59 ADD/ADHD; High Cholesterol; Myocardial infarction; Diabetes - IDDM; GERD; Hypertension; jd3 CHF; RENAL INSUFF; - PSHx: 03:59 Heart stents; Back Surgery; CABG; Cholecystectomy; Great Toe Amputation Right; jd3 - Immunization history:: Adult Immunizations unknown. - Social history:: Smoking status: unknown. - Ebola Screening: : Patient negative for fever greater than or equal to 101.5 degrees Fahrenheit, and additional compatible Ebola Virus Disease symptoms. ROS: 06:36 Unable to obtain ROS due to patient distress. gs Exam: 06:36 Eyes: Pupils equal round and reactive to light, extra-ocular motions intact. Lids and gs lashes normal. Conjunctiva and sclera are non-icteric and not injected. Cornea within normal limits. Periorbital areas with no swelling, redness, or edema. ENT: Nares patent. No nasal discharge, no septal abnormalities noted. Tympanic membranes are normal and external auditory canals are clear. Oropharynx with no redness, swelling, or masses, exudates, or evidence of obstruction, uvula midline. Mucous membranes moist. Neck: Trachea midline, no thyromegaly or masses palpated, and no cervical lymphadenopathy. Supple, full range of motion without nuchal rigidity, or vertebral point tenderness. No Meningismus. Chest/axilla: Normal chest wall appearance and motion. Nontender with no deformity. No lesions are appreciated. 06:36 MS/ Extremity: Pulses equal, no cyanosis. Neurovascular intact. Full, normal range of motion. 06:36 Constitutional: The patient appears in obvious distress, severely distressed. 06:36 Head/face: congested , lividity . 06:36 Cardiovascular: no pulse, no heart sounds. 06:36 Respiratory: intubated equal breath sounds with bagging. 06:36 Abdomen/GI: Palpation: soft. 06:36 Back: Exam negative for acute changes. 06:36 Neuro: comatose. Vital Signs: 03:11 BP 153 / 137; Resp 25 A; Weight 124 kg (R); Height 6 ft. 3 in. (190.50 cm) (R); jd3 03:15 BP 144 / 38; Resp 25 A; Pulse Ox 60% on ETT ambu; jd3 03:25 BP 148 / 108; Resp 26 A; jd3 03:30 BP 54 / 25; Resp 28 A; Pulse Ox 70% on ETT ambu; jd3 03:35 BP 100 / 27; Resp 26 A; Pulse Ox 61% on ETT ambu; jd3 03:11 Body Mass Index 34.17 (124.00 kg, 190.50 cm) jd3 Procedures: 06:36 Ultrasound: Type: Fast exam, performed by the emergency department physician, no pulse gs no cardiac activity. MDM: 03:41 Patient medically screened. 06:36 Data reviewed: vital signs, nurses notes. Counseling: I had a detailed discussion with gs the patient and/or guardian regarding: after mult rounds acls discussed futility with family will terminate efforts. Administered Medications: 03:03 Drug: EPINEPHrine 0.1mg/mL 1:10,000 1 mg Route: IVP; Site: right antecubital; jd3 03:39 Follow up: Response: No change in condition jd3 03:03 Drug: amiodarone 150 mg Route: IVP; Site: right antecubital; jd3 03:39 Follow up: Response: No change in condition jd3 03:07 Drug: amiodarone 150 mg Route: IVP; Site: right antecubital; jd3 03:39 Follow up: Response: No change in condition jd3 03:10 Drug: EPINEPHrine 0.1mg/mL 1:10,000 1 mg Route: IVP; Site: left antecubital; jd3 03:39 Follow up: Response: No change in condition jd3 03:10 Drug: Sodium Bicarbonate 1 amp Route: IVP; Site: left antecubital; jd3 03:39 Follow up: Response: No change in condition jd3 03:14 Drug: EPINEPHrine 0.1mg/mL 1:10,000 1 mg Route: IVP; Site: left antecubital; jd3 03:39 Follow up: Response: No change in condition jd3 03:17 Drug: EPINEPHrine 0.1mg/mL 1:10,000 1 mg Route: IVP; Site: left antecubital; jd3 03:39 Follow up: Response: No change in condition jd3 03:17 Drug: amiodarone 150 mg Route: IVP; Site: left antecubital; jd3 03:39 Follow up: Response: No change in condition jd3 03:20 Drug: EPINEPHrine 0.1mg/mL 1:10,000 1 mg Route: IVP; Site: left antecubital; jd3 03:39 Follow up: Response: No change in condition jd3 03:20 Drug: Sodium Bicarbonate 1 amp Route: IVP; Site: left antecubital; jd3 03:39 Follow up: Response: No change in condition jd3 03:23 Drug: EPINEPHrine 0.1mg/mL 1:10,000 1 mg Route: IVP; Site: left antecubital; jd3 03:39 Follow up: Response: No change in condition jd3 03:26 Drug: EPINEPHrine 0.1mg/mL 1:10,000 1 mg Route: IVP; Site: left antecubital; jd3 03:39 Follow up: Response: No change in condition jd3 03:30 Drug: EPINEPHrine 0.1mg/mL 1:10,000 1 mg Route: IVP; Site: left antecubital; jd3 03:39 Follow up: Response: No change in condition jd3 03:30 Drug: Sodium Bicarbonate 1 amp Route: IVP; Site: left antecubital; jd3 03:39 Follow up: Response: No change in condition jd3 03:36 Drug: EPINEPHrine 0.1mg/mL 1:10,000 1 mg Route: IVP; Site: left antecubital; jd3 03:39 Follow up: Response: No change in condition jd3 04:57 CANCELLED (Other Intervention Used): amiodarone 300 mg IVP in right antecubital once jd3 Disposition: Patient pronounced on 04/06/19 03:39 by Chris Sroia. Impression: Cardiac arrest. - Released to Home. Signatures: Chris Soria MD MD gs Davies, Jonathon RN RN jd3 Corrections: (The following items were deleted from the chart) 04:57 04:49 amiodarone 300 mg IVP in right antecubital once given. jd3 jd3 04:57 04:57 amiodarone 300 mg IVP in right antecubital once ordered. jd3 jd3 06:03 03:42 04/06/2019 03:42 Patient pronounced on 04/06/2019 at 03:39 by Chris Soria. jd3 Impression: Cardiac arrest. Released to Home. gs
== END 2019-04-06 06:03 | disposition expired ==
LOC: ER 03:03
DX: I46.9 Cardiac arrest, cause unspecified (principal); I10 Essential (primary) hypertension; N28.9 Disorder of kidney and ureter, unspecified; E11.9 Type 2 diabetes mellitus without complications; I50.9 Heart failure, unspecified; E78.00 Pure hypercholesterolemia, unspecified; I25.2 Old myocardial infarction; Z79.01 Long term (current) use of anticoagulants; Z79.4 Long term (current) use of insulin; Z95.1 Presence of aortocoronary bypass graft
CPT/HCPCS: 92950; 99291; J0171; J0282